=== PATIENT | male | born 1955 | race Caucasian/White ===

== ENCOUNTER → 2024-07-19 14:55 | Outpatient (REF) | payer MEDICARE, OTHER, SELFPAY | LOC: RAD 14:55 | PROVIDERS: ATTENDING PHYSICIAN Surgery Vascular Surgery | DX: N18.6 End stage renal disease (principal); Z99.2 Dependence on renal dialysis; Z01.818 Encounter for other preprocedural examination | CPT/HCPCS: 93985 ==

== ENCOUNTER 2024-08-07 06:10 | Day surgery (SDC) | payer MEDICARE, OTHER, SELFPAY ==
[2024-08-07] VITALS (9 sets, daily range): BP systolic 123–150; BP diastolic 69–95; BMI 19.9
[2024-08-07] MEDS: PERIDEX 0.12% ORAL RINSE 15 ML PO (06:59)
[2024-08-07] MEDS: BACTROBAN NASAL 1 GRAM NASAL (06:59)
[2024-08-07] MEDS: NSS 500 IV (07:00)
[2024-08-07 07:04] LABS: Glucose - Point of Care 114 mg/dl (70-99)
--- NOTE | 2024-08-07 07:07 | W.SUR.PREOP ---
Pre-Operative Surgical Note
-
I have examined this patient prior to the performance of the scheduled procedure.
The patient's condition is unchanged from the time of the current History and
Physical and the patient is able to undergo the scheduled procedure.
[2024-08-07 07:15] LABS: INR 1.06; PT 14.1 Sec (11.4-14.6)
[2024-08-07 07:16] LABS: APTT 33.3 Sec (23.4-35.0)
[2024-08-07 07:17] LABS: Blood Urea Nitrogen 52 mg/dl (9-20); Calcium 7.9 mg/dl (8.4-10.2); Carbon Dioxide 23 mmol/L (22-30); Chloride 103 mmol/L (98-107); Estimated Creatinine Clearance 29 ml/min; Glucose 116 mg/dl (70-99); Potassium 4.9 mmol/L (3.5-5.1); Sodium 138 mmol/L (135-145); eGFR 29.99
[2024-08-07 08:04] LABS: Hematocrit 30.3 % (39.0-52.0); Hemoglobin 9.9 g/dL (13.0-18.0); Mean Corp Hgb Conc. 32.7 g/dL (33.0-37.0); Mean Corpuscular Hgb 30.4 pg (27.0-31.0); Mean Corpuscular Volume 92.9 fL (80.0-94.0); Platelet Count 58 10^3/uL (130-400); Red Blood Cell Count 3.26 10^6/uL (4.70-6.10); Red Cell Dist. Width 16.1 % (11.5-14.5); White Blood Cell Count 2.7 10^3/uL (4.8-10.8)
[2024-08-07 08:05] LABS: Mean Platelet Volume 10.4 fL (7.4-10.4)
--- NOTE | 2024-08-07 09:25 | W.SUR.POST ---
Surgical Immediate Post Op
Note
Pre Op Diagnosis: ESRD
Post Op Diagnosis: same
Procedure Performed: LUE AV graft placement
Primary Surgeon: Rafael
Assist: Delano MERCHANT
Anesthesia: LMA
Estimated Blood Loss: 50 cc
Fluids: See anesthesia flowsheet
Drains/Shunts: None
Specimens/Cultures: None
Doppler/Duplex/Angio (Y/N): Y
Complications: None
Operative Findings: Easily palpable thrill
[2024-08-07 09:37] LABS: Glucose - Point of Care 196 mg/dl (70-99)
[2024-08-07] MEDS: TYLENOL 650 MG PO (10:10)
[2024-08-07] MEDS: ROXICODONE 5 MG PO (10:10)
--- NOTE | 2024-08-07 10:18 | OR.RPT ---
Operative Report
Operative Report
PROCEDURE DATE: 08/07/2024
Preoperative diagnosis: End-stage renal disease on hemodialysis.
Postoperative diagnosis: Same
Procedure: Left upper extremity brachial axillary upper arm AV graft placement with 7 mm x 4 mm [place] Propaten tapered graft.
Surgeon: Rafael
Combine Mechanic: KYLE Wick, required for all aspects of procedure including assistance with traction/countertraction, following of suture line, assistance with closure.
Complications: None
Anesthesia: General
Indications for procedure:
End-stage renal disease on hemodialysis, requiring access. [id number]. Favored left sided access. Recent ultrasound had demonstrated right IJ thrombus as well as superficial thrombus in the right sided system. More reason discussed left
upper extremity access. However his vein mapping study had demonstrated possible cephalic vein thrombus. Therefore discussed performing ultrasound once under anesthesia in the OR to solidify plan in terms of vein/which vein if available or
alternatively graft. Risk/benefits/alternatives were discussed with the patient. He understood all wished to proceed.
Description of procedure:
Patient was identified brought to the operating room placed on the table in supine position. After induction of anesthesia, I performed vein mapping with the ultrasound myself. Cephalic vein in the forearm at the level of the wrist was okay, but
in the mid forearm there was either wall thickening or chronic thrombus. Cephalic vein in the antecubital fossa was slightly small but the main cephalic vein laterally was reasonable, but when I traced it up the upper arm in the mid upper arm it
again had wall thickening or partial thrombus and was very small. Similarly I identified the basilic vein which looked very large in the distal medial upper arm, and then became very sclerotic with possible luminal partial thrombus. There was a
large collateral vein that emanated at that point that drained the basilic vein bed. Therefore at this point I felt that vein fistula was not suitable.
After the adequate administration of anesthesia he was prepped and draped in the standard surgical fashion. A standard preoperative timeout was undertaken and everybody was in agreement the plan. A longitudinal incision was made in the distal
medial upper arm that was carried through skin subcutaneous tissue. I dissected through the crural fascia layer and identified the brachial artery. It was carefully dissected away from surrounding structures, namely the median nerve. Care was
taken to avoid any injury to the surrounding structures. Vesseloops passed around approximately distally. I now made a longitudinal incision in the medial upper arm at the level of the axilla and extending onto the upper arm that was carried
through skin subcutaneous tissue and then through the crural fascial layer. Care was taken to carefully dissect down to the level of the brachial vein. The deep vein was identified and noted to be large. It was circumferentially dissected
proximally distally and a branch also dissected and Vesseloops passed around all these. I felt that this was very reasonable target. Now I created a subcutaneous tunnel between the 2 incision sites with a [employer] tunneler. I then passed a 7 mm x
4 mm [place] Propaten tapered graft through the tunnel. The patient was now given 2008 of intravenous heparin. I now clamped the proximal and distal brachial artery using Yasargil clips. An 11 blade was then used to make an arteriotomy and then
extended using a [place] scissor. The 4 mm end of the graft which was at the arterial side was now beveled and an anastomosis was fashioned in an end-to-side fashion between the graft and the artery. This was done with a running [place] CV 6 suture. I
completed and then tied down my suture line. I then placed a graft clamp on the graft. I then released my Yasargil clips. There is excellent pulsatile flow into the graft. There is a single point bleeder at the tail of the anastomosis. This was
repaired with a single [place] CV 6 jykyfh-ey-[id number] type suture. Hemostasis was now noted.
I now turned my attention to the venous anastomosis in the proximal upper arm incision. Bulldog clamp was placed in the vein more centrally and more distally the vessel loop was double up and then tightened. Venotomy was made with 11 blade and
extended using a [place] scissor. I then beveled the 7 mm end of the graft and sewed an end-to-side anastomosis to the vein using running [place] CV 6 suture. Prior to completing and tying down my suture line I backbled the vein and flushed out the
graft. I then completed and tied down the suture line. I then released flow in the graft as well as the lower sioux venous system. There is an excellent thrill in the graft now. There is some bleeding on the medial aspect of the suture line or I was
able to repair with a single [place] CV 6 zesdiu-zv-ngsip type suture. Hemostasis is now noted at the suture line. There was now noted some bleeding from the tunnel site. I then used a retractor () from the more proximal upper arm incision
and inspected the tunnel site and was able to identify a bleeder in the subcutaneous or superficial muscle tissue. This was then cauterized successfully. Hemostasis was fully noted now. Patient was given some protamine to reverse the heparin.
Full hemostasis was noted. Surgical sites were irrigated fully. Hemostasis was confirmed. We now closed in layers using running deep dermal 3-0 Vicryl layer in both incision sites followed by 4-0 Monocryl subcuticular running suture. Dermabond
was applied to both sites. Patient tolerated procedure well. Had an excellent thrill in the graft as well as palpable radial and ulnar pulse upon completion.
== END 2024-08-07 11:37 | disposition home or self-care (01) ==
LOC: CATH 06:10
PROVIDERS: ATTENDING PHYSICIAN Surgery Vascular Surgery; FAMILY PHYSICIAN Family Medicine; OTHER PHYSICIAN Internal Medicine Cardiovascular Disease
DX: I12.0 Hypertensive chronic kidney disease with stage 5 chronic kidney disease or end stage renal disease (principal); E11.22 Type 2 diabetes mellitus with diabetic chronic kidney disease; N18.6 End stage renal disease; Z99.2 Dependence on renal dialysis; K74.60 Unspecified cirrhosis of liver; Z87.891 Personal history of nicotine dependence; Z79.84 Long term (current) use of oral hypoglycemic drugs; Z79.01 Long term (current) use of anticoagulants
CPT/HCPCS: 36830; 80048; 82962; 85027; 85610; 85730; 86850; 86900; 86901; 93005

== ENCOUNTER → 2024-08-29 11:08 | Outpatient (REF) | payer MEDICARE, OTHER, SELFPAY | LOC: RAD 11:08 | PROVIDERS: ATTENDING PHYSICIAN Physician Assistant; FAMILY PHYSICIAN Family Medicine | DX: I77.0 Arteriovenous fistula, acquired (principal) | CPT/HCPCS: 93990 ==

== ENCOUNTER → 2024-10-10 09:18 | Outpatient (REF) | payer MEDICARE, OTHER, SELFPAY | LOC: RAD 09:18 | PROVIDERS: ATTENDING PHYSICIAN Physician Assistant; FAMILY PHYSICIAN Family Medicine | DX: I73.9 Peripheral vascular disease, unspecified (principal); I87.2 Venous insufficiency (chronic) (peripheral) | CPT/HCPCS: 93971 ==

== ENCOUNTER 2024-12-21 02:13 | Inpatient (IN) | payer MEDICARE, OTHER, SELFPAY ==
[2024-12-20 23:09] VITALS: BP 137/69
[2024-12-20 23:42] LABS: Hematocrit 26.9 % (39.0-52.0); Hemoglobin 9.3 g/dL (13.0-18.0); Mean Corp Hgb Conc. 34.6 g/dL (33.0-37.0); Mean Corpuscular Hgb 30.5 pg (27.0-31.0); Mean Corpuscular Volume 88.2 fL (80.0-94.0); Mean Platelet Volume 10.8 fL (7.4-10.4); Platelet Count 37 10^3/uL (130-400); Red Blood Cell Count 3.05 10^6/uL (4.70-6.10); White Blood Cell Count 1.2 10^3/uL (4.8-10.8)
[2024-12-20 23:44] LABS: Urine Albumin 2+ (Neg - Trace); Urine Bilirubin Negative (Negative); Urine Character Clear (Clear); Urine Color Yellow; Urine Glucose Negative (Negative); Urine Ketone Negative (Negative); Urine Leukocyte Negative (Negative); Urine Nitrite Negative (Negative); Urine Occult Blood 2+ (Negative); Urine Specific Gravity 1.015 (<1.030); Urine Urobilinogen Negative (Neg - 1+)
[2024-12-20] MEDS: TYLENOL 650 MG PO (23:56)
[2024-12-20 23:57] LABS: COVID-19 Antigen Negative (Negative)
[2024-12-21] VITALS (40 sets, daily range): BP systolic 79–139; BP diastolic 50–86; BMI 21.8
[2024-12-21 00:01] LABS: ALT (SGPT) 10 U/L (0-50); AST (SGOT) 16 U/L (17-59); Albumin 3.7 g/dl (3.5-5.0); Alkaline Phosphatase 58 U/L (38-126); Blood Urea Nitrogen 75 mg/dl (9-20); Calcium 8.8 mg/dl (8.4-10.2); Carbon Dioxide 16 mmol/L (22-30); Chloride 107 mmol/L (98-107); Glucose 193 mg/dl (70-99); Potassium 5.2 mmol/L (3.5-5.1); Sodium 135 mmol/L (135-145); Total Bilirubin 0.7 mg/dl (0.2-1.3); Total Protein 6.6 g/dl (6.3-8.2); eGFR 13.05
[2024-12-21 00:04] LABS: Urine Granular Cast 0-2 /LPF (0)
[2024-12-21 00:06] LABS: Urine Bacteria Few (Negative); Urine White Cell 0-2 /HPF (0-5)
--- NOTE | 2024-12-21 00:36 | ED.GENMED ---
History of Present Illness
General
Chief Complaint: Breathing Problem
Source: patient and spouse
Exam Limitations: none
Time Seen by Provider: 12/20/24 23:31
Nursing documentation reviewed up to this point in time: agreed with
History of Present Illness
History of Present Illness:
Patient presents to ED with 3-day history of flulike symptoms, worsened over the past 24 hours with increased work of breathing and hypoxia noted at home, 87% on room air. Patient placed on supplemental oxygen by paramedics and transferred to ED
for an evaluation. Patient denies nausea, vomiting, or diarrhea. Denies chest pain. Denies headache. Denies dizziness. Denies neck pain. Patient has history of recent liver transplant at [facility] last year.
Unfortunately, patient was a candidate for kidney transplant tomorrow, which has been postponed.
Past History
Past History
ED Past Medical History: HTN, NIDDM and Other (Cirrhosis, hep C, ascites requiring paracentesis)
Social History
Tobacco: Former smoker
Alcohol: Former
Personal:
Living: with family
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
Family History
Family History: Negative Hypertension
Review of Systems
Review of Systems
Allergies reviewed?: Yes
All Other Systems: ROS reviewed and negative except as documented in HPI and ROS
Constitutional: Reports fever
EENT: Reports no symptoms
Respiratory: Reports cough and trouble breathing
Cardiac: Reports no symptoms
ABD/GI: Reports no symptoms; Denies vomiting or diarrhea
Musculoskeletal: Reports no symptoms
Skin: Reports no symptoms
Neurological: Reports no symptoms
Phy Exam
Physical Exam
Physical Exam:
Physical Exam
General: mild respiratory distress, acutely ill. febrile. tachypneic
Head: nc/at. eomi
Neck: supple. no meningeal signs.
Heart: s1/s2 regular rate and rhythm.
Lungs: mild respiratory distress. rhonchi bilaterally
Abdomen: normal bowel sounds. not tender.
Neuro: alert and oriented x 3. no focal neurological deficits
Skin: no rash
Psychiatric: well kept. interactive and cooperative
Extremities: no edema. no calf tenderness.
Scores
Heart Failure Risk
Heart Failure Risk Score: Not Applicable
Sepsis
Sepsis Screening
Sepsis Assessment: Sepsis
Sepsis Screen
Sepsis Screen: Sepsis
Date: 12/22/24
Time: 09:14
Course
Orders/Labs/Results
Orders:
Orders
12/20/24 23:27
COVID-19 Antigen Urgent
Source: Nasal Swab
Complete Blood Count/With Diff Urgent
Comprehensive Metabolic Panel Urgent
Manual Differential Urgent
Comment: ADD ON
Urinalysis Urgent
Date Specimen was Collected: 12/20/24
Time Specimen was Collected: 23:25
Urine Microscopic Urgent
Date Specimen was Collected: 12/20/24
Time Specimen was Collected: 23:25
Influenza A+B Rapid Molecular Urgent
KATHRIN Source: Nasal Swab
Specimen Description:
12/20/24 23:40
Acetaminophen [Tylenol] 650 mg PO NOW STA
12/21/24 00:00
CR Chest - 2 Views Urgent
Reason For Exam: SOB, cough
12/21/24 00:29
Influenza A+B Rapid Molecular Urgent
KATHRIN Source: Nasal Swab
Specimen Description:
Date Specimen was Collected: 12/21/24
Time Specimen was Collected: 00:26
12/21/24 00:38
Piperacillin/Tazo 3.375 Gram [Zosyn] 3.375 gram in 50 ml IV NOW
12/21/24 00:48
Lactic Acid Q4H
Comment: CANCEL 2nd LACTIC ACID IF 1st LACTIC ACID IS LESS THAN 2
Blood Culture Q30M
KATHRIN Source: Blood/Venous
Specimen Description:
Blood Culture Q30M
KATHRIN Source: Blood/Venous
Specimen Description:
12/21/24 01:32
Vancomycin [Vancocin] 1,500 mg 0.9% Sodium Chloride 500 ml [Nss] 500 ml IV NOW
12/21/24 01:35
Admit/Transfer Patient As Directed
Co-Sign Provider:
Level of Care: Inpatient admission
Assign to:: IMU- Intermediate Care
Physician / Group: Gabriella/Hospitalist
Diagnosis: Acute hypoxic respiratory failure, multifocal community-acquired pneumonia
Reason for Hospitalization: Acute hypoxic respiratory failure, multifocal community-acquired pneumonia
Expected length of stay greater than two midnights?: Yes
ELOS- Estimated Length of Stay in days: 4
I certify the patient meets the requirements for IP care: Yes
12/21/24 01:36
PRN Pain Medication Management As Directed
May give lesser potent ordered pain med per pt: Yes
preference::
Protocol:: Medication orders for pain may be administered in a
manner that supports deferring to patient preference
when the pt is:
- Requesting an ordered lesser potent pain medication.
Least to most potent pain medications are defined
as: acetaminophen < NSAID < tramadol < opioids
(morphine, oxycodone, hydromorphone).
- Requesting a lesser dose of the same medication IF
ORDERED.
- Requesting a less intrusive route of administration
if both routes are prescribed by the provider (PO <
IV).
12/21/24 01:46
Code Status As Directed
Resuscitation Status: Full Code
12/21/24 02:00
Flush (0.9% Sodium Chloride) [Flush (Nss)] See Dose Instructions IV PER PROTOCOL
12/21/24 03:22
VANCOMYCIN Pharmacy to Dose [VANCOCIN Pharmacy to Dose] 1 each Pharmacy To Prepare [Call Pharmacy To Prepare] 0 ml IV PER PROTOCOL
12/21/24 03:22
NEPHROLOGY CONSULT Routine
Consulting Provider: Eladio Pratt V.
Was physician already notified: Yes
Reason for consult: ESRD on HD, on transplant list, Hep B
Legionella Urinary Antigen Urgent
KATHRIN Source: Urine
Specimen Description:
Respiratory Culture/Gram Stain Urgent
KATHRIN Source: Sputum
Specimen Description:
Strep pneumoniae Antigen Urgent
KATHRIN Source: Urine
Specimen Description:
Activity As Directed
Activity Level: Out of Bed-Early Mobility
Intake/ Output As Directed
Frequency: Per unit guidelines
Pneumatic Compression Sleeves As Directed
Type: Knee high
Vital Signs As Directed
Frequency: Per unit guidelines
Weight As Directed
Frequency: Once
Comment: on admission
O2 Therapy [RESP] Routine
Nasal Cannula Liter Flow: 2 LPM
Titrate/Wean O2 to maintain O2 sat greater than (%): 94
Special Instructions: Wean as tolerated
Pulse Ox/spot Check [RESP] Routine
Quantity: 1
Special Instructions: notify provider if SPO2 < 91%
DX Deep Vein Thrombosis Video Routine
12/21/24 05:41
Complete Blood Count/With Diff IN AM
Comprehensive Metabolic Panel IN AM
Prothrombin Time IN AM
12/21/24 Breakfast
Regular
At Your Request: Full Participation
Fluid Restriction: 1500 mL/day (50 oz)
12/21/24 08:00
Acetaminophen [Tylenol] 650 mg PO TID
Calcium 200mg(Ca. Carb. 500mg) [Tums Chewable Tablet] 200 mg PO DAILY
Cholecalciferol (Vitamin D3) [VITAMIN D3 (cholecalciferol)] 25 mcg PO DAILY
Piperacillin/Tazo 2.25 Gram [Zosyn] 2.25 grams in 50 ml IV Q8H
Tacrolimus [Prograf] 1 mg PO Q12
Tacrolimus [Prograf] 5 mg PO Q12
12/21/24 18:00
Repaglinide [Prandin] 1 mg PO QPM
12/23/24 08:00
entecavir [Baraclude] See Dose Instructions PO MO
Abnormal Lab Results
12/20/24 12/21/24
23:27 00:48
WBC 1.2 L* 10^3/uL
(4.8-10.8)
RBC 3.05 L 10^6/uL
(4.70-6.10)
Hgb 9.3 L g/dL
(13.0-18.0)
Hct 26.9 L %
(39.0-52.0)
RDW 15.0 H %
(11.5-14.5)
Plt Count 37 L 10^3/uL
(130-400)
MPV 10.8 H fL
(7.4-10.4)
Abs Neuts (Manual) 0.8 L* 10^3/uL
(1.4-6.5)
Lymphocytes (Manual) 15 L %
(20-51)
Potassium 5.2 H mmol/L
(3.5-5.1)
Carbon Dioxide 16 L mmol/L
(22-30)
BUN 75 H mg/dl
(9-20)
Creatinine 4.6 H* mg/dL
(0.7-1.3)
Glucose 193 H mg/dl
(70-99)
Lactic Acid 0.5 L mmol/L
(0.7-2.0)
AST 16 L U/L
(17-59)
Urine Occult Blood 2+ A
(Negative)
Urine RBC 3-6 A /HPF
(0-2)
Urine Bacteria Few A
(Negative)
Urine Albumin 2+ A
(Neg - Trace)
12/20/24 23:27
12/20/24 23:27
Vital Signs
Initial and Last Documented VS:
Initial Vital Signs
Temp Pulse Resp BP Pulse Ox
100.4 F H 96 22 137/69 93
12/20/24 23:09 12/20/24 23:09 12/20/24 23:09 12/20/24 23:09 12/20/24 23:09
Last Documented Vital Signs
Temp Pulse Resp BP Pulse Ox
98.3 F 69 20 133/61 97
12/22/24 06:43 12/22/24 05:30 12/22/24 05:30 12/22/24 05:30 12/22/24 05:30
MDM/Problems Addressed
MDM/Problems Addressed:
History, exam, and chest x-ray consistent with hypoxia secondary to bilateral pneumonia. In light of patient's immunocompromise state, patient will be admitted for broad-spectrum antibiotics and continual supplemental oxygen
*Pulse Oximetry
Patient hypoxic: yes (87%)
*Critical Care Note
Total Time (30-74mins, 75-104mins- exclusive of procedures): Not Applicable
ED Attending Note
-
Portions of this chart may have been created with voice recognition software.� Occasional wrong word or��sound alike� substitutions may have occurred due to the inherent limitations of voice recognition software.
Discharge Plan
Departure
Patient Disposition: Admit
Date of Disposition: 12/21/24
Time of Disposition: 00:43
Admit to: IMU
Presentation/result/management discussed w/ accepting MD/DO: Hospitalist
Discharge Problem:
Hypoxia, Pneumonia
Interventions
Interventions:
*Risk Screen - Suicide Last Done: 12/21/24 00:05
*General Assessment Last Done: 12/21/24 00:05
*Neglect/Abuse Screening Last Done: 12/21/24 00:05
*ED- Fall Risk Assessment Last Done: 12/21/24 00:05
*ED COVID-19 Vaccine History Last Done: 12/21/24 00:42
*Nursing Disposition Last Done: 12/21/24 03:26
ED- Cardiac Assessment Last Done: 12/21/24 00:42
ED- Pulmonary Assessment Last Done: 12/21/24 00:42
Discharge Date and Time
Discharge Date/Time: 12/21/24 03:26
--- NOTE | 2024-12-21 00:47 | HPS.HSE ---
Family Physician
-
Family Physician: Renaldo Langford
Chief Complaint
-
Flu-like symptoms, shortness of breath, and fever
History of Present Illness
The patient is a 69-year-old gentleman with past medical history significant for liver transplantation 1 year prior, at [facility], recurrent pancytopenia, hypertension, gtm-[id number] diabetes mellitus, cirrhosis,
hepatitis C, ascites requiring paracentesis who presents to the emergency department via EMS secondary to 5-day history of flulike symptoms that have acutely worsened over the past 24 hours prior to arrival. The patient had nasal congestion and
upper respiratory symptoms that started 5 days ago along with a upper lip cold sore. He then noted that this morning he started to become acutely short of breath and was having a cough productive of sputum over the past 24 hours. His oxygen
saturation was 87% on room air, per EMS on their arrival, and he was placed on oxygen per nasal cannula. Of note the patient was a candidate for kidney transplant for tomorrow which has been postponed.
Labs are remarkable for WBC 1.2, hemoglobin 9.3, platelets 37, potassium 5.2, CO2 16, BUN 75, creatinine 4.6, creatinine was 2.12 July 2024, urinalysis shows 2+ blood 3-6 RBCs few bacteria and 2+ albumin, SARS Cov 2 antigen is negative, influenza
A and B negative.
Chest x-ray report is pending, suspect bilateral lower lobe consolidation
ED treatment includes IV vancomycin, IV Zosyn, Tylenol
Medical History
Past Medical History
Past Medical History: Reports GERD, HTN, NIDDM, Renal Failure (End-stage renal disease on hemodialysis since October 2023) and Other (Cirrhosis, hepatitis C, ascites, status post liver transplantation November 2023 at [facility])
Past Surgical History: Reports Other (Liver transplantation at [facility] approximately 1 year ago, AV graft left upper extremity August 07, [address] Hall)
Social History
Tobacco: Former Smoker
Alcohol: Former
Personal:
Living: With Family
Family History
Family History: Not pertinent
Allergies / Home Medications
Allergies reflects when Allergies were last updated in [facility].
Home Medications with original date entered in [facility]
Allergy/Medication List:
Allergies
Allergy/AdvReac Type Severity Reaction Status Date / Time
No Known Allergies Allergy Verified 12/20/24 23:24
Home Medications
acetaminophen 650 mg tablet 650 mg PO TID 08/07/24
calcium carbonate (Tums) 200 mg PO DAILY 08/07/24
cholecalciferol (vitamin D3) 25 mcg (1,000 unit) capsule (Vitamin D3) 25 mcg PO DAILY 08/07/24
entecavir 0.5 mg tablet (Baraclude) 0.5 mg PO MO Hepatitis B 08/07/24
furosemide 80 mg tablet 80 mg PO .SUNMONWEDTHFRI 08/07/24
repaglinide 1 mg tablet 1 mg PO QPM 08/07/24
tacrolimus 1 mg capsule, immediate-release 1 mg PO Q12H 08/07/24
tacrolimus 5 mg capsule, immediate-release 5 mg PO Q12H 08/07/24
aspirin 325 mg tablet 325 mg PO DAILY 12/21/24
Review of Systems
-
A 12 point ROS was completed and negative except as noted: Yes
Physical Exam
Vital Signs
Vital Signs
Temp Pulse Resp BP Pulse Ox
100.4 F H 96 22 137/69 93
12/20/24 23:09 12/20/24 23:09 12/20/24 23:09 12/20/24 23:09 12/20/24 23:09
Physical Exam
General: Well Developed and Appears Chronically Ill (cachexia)
HEENT: NormoCephalic, Anicteric and Moist mucous membranes
Respiratory: Rhonchi (bilateral)
Cardiac: S1/S2 and Regular Rhythm
GI: Soft, Non Tender and Non Distended
Musculoskeletal: No Clubbing, No Cyanosis, Edema, Left Lower Extremity and Edema, Right Lower Extremity
Skin: Warm and Dry
Neuro: AO x 3 and No Motor Deficits
Psych: Calm
Laboratory Results
-
12/20/24 23:
12/20/24:
Laboratory Results
Total Bilirubin 0.7 mg/dl (0.2-1.3) 12/20/24:
AST 16 U/L (17-59) L 12/20/24:
ALT 10 U/L (0-50) 12/20/24:
Alkaline Phosphatase 58 U/L (38-126) 12/20/24:
Impression/Plan
-
IMPRESSION:
The patient is a 69-year-old gentleman with past medical history significant for liver transplantation November 2023, at [facility], recurrent pancytopenia, hypertension, omr-ywjqpxa-ombytezfz diabetes mellitus, cirrhosis,
hepatitis C, ascites requiring paracentesis who presents to the emergency department via EMS secondary to 5-day history of flulike symptoms that have acutely worsened over the past 24 hours prior to arrival. The patient had nasal congestion and
upper respiratory symptoms that started 5 days ago along with a upper lip cold sore. He then noted that this morning he started to become acutely short of breath and was having a cough productive of sputum over the past 24 hours. His oxygen
saturation was 87% on room air, per EMS on their arrival, and he was placed on oxygen per nasal cannula. Of note the patient was a candidate for kidney transplant for tomorrow which has been postponed.
Labs are remarkable for WBC 1.2, hemoglobin 9.3, platelets 37, potassium 5.2, CO2 16, BUN 75, creatinine 4.6, creatinine was 2.12 July 2024, urinalysis shows 2+ blood 3-6 RBCs few bacteria and 2+ albumin, SARS Cov 2 antigen is negative, influenza
A and B negative.
Chest x-ray report is pending, suspect bilateral lower lobe consolidation
ED treatment includes IV vancomycin, IV Zosyn, Tylenol
# Acute hypoxic respiratory failure secondary to likely bacterial community-acquired pneumonia in the setting of immunosuppression, fever
- Admit the patient to the IMU, telemetry monitoring
- Continue broad-spectrum IV antibioticsWith IV vancomycin and IV Zosyn
- Sputum cultures, blood cultures
- Strep and Legionella urinary antigen
- Continue oxygen per nasal cannula at 2 L and wean per protocol
- Serial lactic acid level
# End-stage renal disease on hemodialysis on Tuesdays and Saturdays, a/w hyperkalemia at 5.2 without EKG changes, metabolic acidosis
-The patient is on the transplant list at [facility], and was scheduled for kidney transplantation tomorrow, and this has been postponed due to current active infection.
-He is status post AV graft left arm in July with Dr. Hall
- Primary team to notify liver transplant specialists at the number [phone], Dr. Martinez is the transplant specialist, Beto Whitfield is the coordinator
- Nephrology consultation placed for hemodialysis tomorrow
- Repeat laboratory in the morning
- Renally adjust medications
- Monitor intake and output and daily weights
- Patient takes Lokelma daily, will continue and monitor laboratory
# Liver transplantation November 2023 [facility]
- Continue the patient on his immunosuppressive medication, tacrolimus, he had his home dose before coming to the ED tonight
# Pancytopenia
- Patient has worsening of WBC with leukopenia, anemia, thrombocytopenia which has been worsened since his most recent laboratory values, likely multifactorial in the setting of acute infection
- Continue to monitor labs daily
- No active bleeding, monitor for bleeding
- Continue broad-spectrum antibiotics
# Hepatitis B acquired within the past year
- Patient is noted that he gets dialyzed in [place] [facility] in [facility] with Dr. Shaffer
- Continue antiviral therapy
# Hypertension, blood pressure is stable at this point
DVT prophylaxis-PCD's given thrombocytopenia
Full code
[2024-12-21] MEDS: ZOSYN 50 IV ×4 (00:54→23:02)
[2024-12-21 01:13] LABS: Segmented Neutrophils 72 % (42-75)
[2024-12-21 01:14] LABS: Anisocytosis 2+; Band Neutrophils 0 % (0-3); Lymphocytes 15 % (20-51); Monocytes 5 % (2-9); Normal RBC Morphology No; Ovalocytes 1+; Platelets Checked Yes; Total Cells Counted 100
[2024-12-21 01:15] LABS: Absolute Neutrophils -Man Diff 0.8 10^3/uL (1.4-6.5)
[2024-12-21 01:37] LABS: Lactic Acid 0.5 mmol/L (0.7-2.0)
[2024-12-21] MEDS: VANCOCIN 530 MG IV (01:42)
[2024-12-21 05:58] LABS: INR 1.33; PT 16.7 Sec (11.4-14.6)
--- NOTE | 2024-12-21 06:04 | PTCARENOTE ---
Admitted pt overnight. aaaox3, pleasant. C/o 02/16 chronic back pain. No SOB or HEAD. Remains on 2LNC. NSR. vitals stable. LAVF, due for HD today. IVABX. No other issues. will monitor.
[2024-12-21 06:06] LABS: Hematocrit 25.3 % (39.0-52.0); Hemoglobin 8.7 g/dL (13.0-18.0); Mean Corp Hgb Conc. 34.4 g/dL (33.0-37.0); Mean Corpuscular Hgb 30.9 pg (27.0-31.0); Mean Corpuscular Volume 89.7 fL (80.0-94.0); Mean Platelet Volume 11.6 fL (7.4-10.4); Platelet Count 33 10^3/uL (130-400); Red Blood Cell Count 2.82 10^6/uL (4.70-6.10); Red Cell Dist. Width 14.9 % (11.5-14.5); White Blood Cell Count 1.8 10^3/uL (4.8-10.8)
[2024-12-21 06:18] LABS: ALT (SGPT) < 10 U/L (0-50); AST (SGOT) 15 U/L (17-59); Albumin 3.2 g/dl (3.5-5.0); Alkaline Phosphatase 44 U/L (38-126); Blood Urea Nitrogen 75 mg/dl (9-20); Calcium 8.5 mg/dl (8.4-10.2); Carbon Dioxide 20 mmol/L (22-30); Chloride 107 mmol/L (98-107); Estimated Creatinine Clearance 16 ml/min; Glucose 190 mg/dl (70-99); Potassium 5.2 mmol/L (3.5-5.1); Sodium 137 mmol/L (135-145); Total Bilirubin 0.6 mg/dl (0.2-1.3); eGFR 12.72
--- NOTE | 2024-12-21 07:38 | PTCARENOTE ---
ON walking rounds pt AAAOx3, awaiting nephrology as today is usual HD day. Pt did walk to BR with tech
--- NOTE | 2024-12-21 07:41 | W.PN.HOSP.TC ---
Today's Communication/Plan
-
vanc/zosyn/azithro - stop vanc if MRSA swab negative
Renal consult for HD
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
monitor PLT
Assessment / Plan
Assessment / Plan
The patient is a 69-year-old gentleman with past medical history significant for liver transplantation 1 year prior, at [facility], recurrent pancytopenia, hypertension, jhe-yatnmep-nwsepmxlc diabetes mellitus, cirrhosis,
hepatitis C, ascites requiring paracentesis who presents to the emergency department via EMS secondary to 5-day history of flulike symptoms that have acutely worsened over the past 24 hours prior to arrival.
# Acute hypoxic respiratory failure secondary to likely bacterial community-acquired pneumonia in the setting of immunosuppression, fever
- Admit the patient to the IMU, telemetry monitoring
- covid and flu negative
- Continue broad-spectrum IV antibiotics With IV vancomycin and IV Zosyn; add Azithromycin for atypical coverage; stop Vanc if MRSA screen negative
- Sputum cultures, blood cultures
- Strep and Legionella urinary antigen
- Continue oxygen per nasal cannula at 2 L and wean per protocol
- Serial lactic acid level
# End-stage renal disease on hemodialysis on Tuesdays and Saturdays, a/w hyperkalemia at 5.2 without EKG changes, metabolic acidosis
-The patient is on the transplant list at [facility], and was scheduled for kidney transplantation tomorrow, and this has been postponed due to current active infection.
-He is status post AV graft left arm in July with Dr. Hall
- I will notify liver transplant specialists at the number [phone], Dr. Martinez is the transplant specialist, Beto Whitfield is the coordinator
- Nephrology consultation placed for hemodialysis
- Renally adjust medications
- Monitor intake and output and daily weights
- Patient takes Lokelma daily, will continue and monitor laboratory
# Liver transplantation November 2023 [facility]
- Continue the patient on his immunosuppressive medication, tacrolimus
# Pancytopenia
- Patient has worsening of WBC with leukopenia, anemia, thrombocytopenia which has been worsened since his most recent laboratory values, likely multifactorial in the setting of acute infection
- Continue to monitor labs daily
- No active bleeding, monitor for bleeding
- Continue broad-spectrum antibiotics
# Hepatitis B acquired within the past year
- Patient is noted that he gets dialyzed in [place] dialysis in [facility] with Dr. Shaffer
- Continue antiviral therapy
# Hypertension, blood pressure is stable at this point
DVT prophylaxis-PCD's given thrombocytopenia
Full code
51 minutes spent on patient care
Anticipated Discharge: > 48 hours
Subjective/Interval History
-
Date of Service: December 21, 2024
feeling better today
sitting up in chair, on 2L
Objective Data
-
Labs:
Laboratory Results
12/20/24 12/21/24
23:27 05:41
WBC 1.2 L* 1.8 L*
Hgb 9.3 L 8.7 L
Hct 26.9 L 25.3 L
Plt Count 37 L 33 L
PT 16.7 H
INR 1.33
Sodium 135 137
Potassium 5.2 H 5.2 H
Chloride 107 107
Carbon Dioxide 16 L 20 L
BUN 75 H 75 H
Creatinine 4.6 H* 4.7 H*
Glucose 193 H 190 H
Calcium 8.8 8.5
Total Bilirubin 0.7 0.6
AST 16 L 15 L
ALT 10 < 10
Alkaline Phosphatase 58 44
Vital Signs:
Vital Signs
Temp Pulse Resp BP Pulse Ox
99.0 F 76 20 103/60 98
12/21/24 03:32 12/21/24 04:00 12/21/24 04:00 12/21/24 04:00 12/21/24 04:00
Review of Systems
-
History Source: Patient
All other systems: Reviewed and negative
Physical Exam
-
General: No Apparent Distress
HEENT: PERRLA
Respiratory: Clear to Auscultation; Negative Wheezes
Cardiac: Regular Rhythm and S1/S2
GI: Soft and Nontender
Musculoskeletal: No Edema
Skin: Warm and Dry; Negative Rash
Neuro: AO x 3
Psych: Calm
Data Reviewed
-
Diagnostic Radiology: Report Reviewed by me
Labs: Labs Reviewed by me
[2024-12-21] MEDS: PROGRAF 5 MG PO ×2 (08:54→20:03)
[2024-12-21] MEDS: ZITHROMAX 500 MG PO (08:55)
[2024-12-21] MEDS: TUMS CHEWABLE TABLET 200 MG PO (08:55)
[2024-12-21] MEDS: TYLENOL 650 MG PO ×3 (08:55→22:26)
[2024-12-21] MEDS: VITAMIN D3 (cholecalciferol) 25 MCG PO (08:56)
[2024-12-21] MEDS: PROGRAF 1 MG PO ×2 (08:57→20:03)
[2024-12-21] MEDS: MUCINEX 600 MG PO ×2 (08:58→20:03)
--- NOTE | 2024-12-21 09:10 | W.CON.NEPH ---
Consultation
-
Date/Time Consultation Requested: 12/21/2024 2:00 AM
Date/Time Consultation Performed: 12/21/2024 900 AM
Requesting Provider: Dr. Quiroz
Performing Provider: Dr. Pratt
Reason for Consultation: ESRD
Medical History
-
Chief Complaint: ESRD
History of Present Illness:
The patient is a 69-year-old gentleman with past medical history significant for liver transplantation 1 year prior, at [facility] (maintained on tacrolimus),ESRD (on dialysis since October 2023 on Monday
[facility] dialysis with Dr. hSaffer) recurrent pancytopenia, hypertension, haf-nlszmky-jjcyexxtm diabetes mellitus, cirrhosis, hepatitis C, ascites requiring paracentesis who presents to the emergency department via EMS secondary to
5-day history of flulike symptoms that have acutely worsened over the past 24 hours prior to arrival. The patient had nasal congestion and upper respiratory symptoms that started 5 days ago along with a upper lip cold sore. He then noted that this
morning he started to become acutely short of breath and was having a cough productive of sputum over the past 24 hours. His oxygen saturation was 87% on room air, per EMS on their arrival, and he was placed on oxygen per nasal cannula. Of note the
patient was a candidate for kidney transplant for 12/21/24 which has been postponed.
Labs are remarkable for WBC 1.2, hemoglobin 9.3, platelets 37, potassium 5.2, CO2 16, BUN 75, creatinine 4.6, creatinine was 2.12 July 2024, urinalysis shows 2+ blood 3-6 RBCs few bacteria and 2+ albumin, SARS Cov 2 antigen is negative, influenza
A and B negative.
Chest x-ray report is pending, suspect bilateral lower lobe consolidation
Past Medical History
Reports GERD, HTN, NIDDM, Renal Failure (End-stage renal disease on hemodialysis since October 2023) and Other (Cirrhosis, hepatitis C, ascites, status post liver transplantation November 2023 at [facility])
Past Surgical History: Reports Other (Liver transplantation at [facility] approximately 1 year ago, AV graft left upper extremity August 07, [address] Hall)
Social History
Tobacco: Former Smoker
Alcohol: Former
Family History
no ckd
Allergies / Home Medications
Allergy/AdvReac Type Severity Reaction Status Date / Time
No Known Allergies Allergy Verified 12/20/24 23:24
�Medication �Instructions �Recorded �Confirmed �Type
acetaminophen 650 mg tablet 650 mg PO TID 08/07/24 12/21/24 History
calcium carbonate (Tums) 200 mg PO DAILY 08/07/24 12/21/24 History
cholecalciferol (vitamin D3) 25 25 mcg PO DAILY 08/07/24 12/21/24 History
mcg (1,000 unit) capsule (Vitamin
D3)
entecavir 0.5 mg tablet (Baraclude) 0.5 mg PO MO Hepatitis B 08/07/24 12/21/24 History
furosemide 80 mg tablet 80 mg PO .SUNMONWEDTHFRI 08/07/24 12/21/24 History
repaglinide 1 mg tablet 1 mg PO QPM 08/07/24 12/21/24 History
tacrolimus 1 mg capsule, 1 mg PO Q12H 08/07/24 12/21/24 History
immediate-release
tacrolimus 5 mg capsule, 5 mg PO Q12H 08/07/24 12/21/24 History
immediate-release
aspirin 325 mg tablet 325 mg PO DAILY 12/21/24 12/21/24 History
Review of Systems
-
History Source: Patient
All other systems: Negative unless noted
Constitutional: Fever and Fatigue
EENT: Runny Nose
Respiratory: Cough and Trouble Breathing
Skin: Other (Cold sore on lip)
Physical Exam
Vital Signs
Vital Signs
Temp Pulse Resp BP Pulse Ox
98.3 F 76 20 103/60 98
12/21/24 07:30 12/21/24 04:00 12/21/24 04:00 12/21/24 04:00 12/21/24 04:00
Lab Results
12/21/24 05:41
12/21/24 05:41
WBC 1.8 10^3/uL (4.8-10.8) L* 12/21/24 05:41
RBC 2.82 10^6/uL (4.70-6.10) L 12/21/24 05:41
Hgb 8.7 g/dL (13.0-18.0) L 12/21/24 05:41
Hct 25.3 % (39.0-52.0) L 12/21/24 05:41
Plt Count 33 10^3/uL (130-400) L 12/21/24 05:41
Sodium 137 mmol/L (135-145) 12/21/24 05:41
Potassium 5.2 mmol/L (3.5-5.1) H 12/21/24 05:41
Chloride 107 mmol/L (98-107) 12/21/24 05:41
Carbon Dioxide 20 mmol/L (22-30) L 12/21/24 05:41
BUN 75 mg/dl (9-20) H 12/21/24 05:41
Creatinine 4.7 mg/dL (0.7-1.3) H* 12/21/24 05:41
eGFR 12.72 12/21/24 05:41
Glucose 190 mg/dl (70-99) H 12/21/24 05:41
Calcium 8.5 mg/dl (8.4-10.2) 12/21/24 05:41
Albumin 3.2 g/dl (3.5-5.0) L 12/21/24 05:41
Physical Exam
General: AOx3, Nontoxic , NAD
HEENT: PERRL, EOMI, Anicteric, Conjunctivae Clear, Ear/Nose Intact, Hearing Normal, Oropharynx Clear/Moist, Dentition Intact, Facial Symmetry, Neck Supple, Neck: Trachea Midline, No JVD and No Thyromegaly, no Bruits
Respiratory: Crackles bilaterally to auscultation bilaterally with normal lung excursion
Cardiac: S1/S2 and Regular Rate/Rhythm
Breast: Deferred by me
Abdomen: Soft, Nontender, Nondistended, Normal Bowel Sounds and No Hepatosplenomegaly
Rectal: Deferred by Provider
Genito-urinary: No Costovertebral Tenderness
Extremities: No Clubbing, No Cyanosis and No Edema
Skin: No Rash or open lesions
Neuro: Nonfocal/Grossly Intact, CN II-XII (Intact) and Strength (Musculoskeletal exam 5 out of 5 both upper and lower extremities)
Hematologic/Lymphatic: No Cervical Lymphadenopathy, No Submandibular Lymphadenopathy and No Supraclavicular Lymphadenopathy
Psych: Mood/afflect pleasant, Insight/judgement good and Appropriate
Vascular: plus 2 pedal and radial pulses
Vascular Access: AVF (LUE AVF: good thrill bruit)
Data Reviewed
-
Radiology: Image Personally Visualized and interpreted (Chest x-ray: Bilateral lower lobe infiltrates)
Medical Tests (Nuc Med, Echo etc): Other (EKG report reviewed normal sinus rhythm with nonspecific T wave abnormality at 94 beats per minute)
Labs: Labs Reviewed by me (BMP CBC)
Assessment/Plan
-
Impression:
PNA with hypoxic respiratory failure
ESRD
Chronic pancytopenia (chronic immunosuppresion)
History of liver transplant in November 2019
Uwk-osldeap-abvefpipj diabetes
Hepatitis B
HTN
LUE AVF
Plan:
Plan will be for hemodialysis today, orders provides
Appropriate dietary and fluid restrictions ordered for ESRD
Antibiotics for pneumonia to be renally dosed
GENIE support for anemia
--- NOTE | 2024-12-21 09:58 | PTCARENOTE ---
Pt AAOx3, gets to chair by himself. Awaiting HD. Pt has LAV fistula +bruit and thrill . Lungs are coarse with some crackles. Pt on 2 liters of o2 at 94%
--- NOTE | 2024-12-21 10:18 | PHA.VAN.IN ---
Assessment
- Assessment
Renal Function: Patient has ESRD, on chronic Hemodialysis
Hemodialysis Schedule: TThSa
Maximum Temperature: 100.4
Minimum Temperature: 98.3
Concomitant Antimicrobials: Azithromycin; Piperacillin-tazobactam
Plan
- Plan
Initial / Loading Dose: Vanc 1500mg 12/21 at 0142
Maintenance Regimen: Dose by level
Monitoring: R 12/22 AM
Pharmacokinetics Vancomycin I
- -
Patient Age: 69
Patient Sex: Male
Vancomycin Day #: 1
Indication: Pulmonary/Respiratory
Requesting Provider: Manasa Quiroz
Height / Weight:
Height 6 ft 1 in
Actual Weight 74.8 kg
IBW in k.9
Adjusted BW in kg: NA
Pertinent Past Medical History: Post liver transplant 11/2023; ESRD on HD ,, Sa since 10/2023
- Vital Signs / Lab Results
Temp Pulse Resp BP Pulse Ox
98.3 F 74 17 103/67 98
12/21/24 07:30 12/21/24 08:00 12/21/24 08:00 12/21/24 06:00 12/21/24 08:00
Lab Results - Hematology
12/20/24 12/21/24
23:27 05:41
WBC 1.2 L* 1.8 L*
Band Neutrophils 0
Lab Results - Chemistry
12/20/24 12/21/24
23:27 05:41
BUN 75 H 75 H
Creatinine 4.6 H* 4.7 H*
Estimated Creat Clear 16
Albumin 3.7 3.2 L
12/21/24 12/21/24 12/21/24
00:48 03:22 04:45
Lactic Acid 0.5 L Cancelled Cancelled
12/21/24 12/21/24 12/21/24
07:22 11:22 15:22
Lactic Acid Cancelled Cancelled Cancelled
Lab Results - Urine
12/20/24
23:27
Urine Nitrite Negative
Ur Leukocyte Esterase Negative
Urine WBC 0-2
Ur Squamous Epith Cells 3-5
Urine Bacteria Few A
Microbiology Results
12/21/24 00:29 Influenza Types A & B (KURT) - Final
Nasal Swab Negative for Influenza A & B, NAAT
Negative results must be combined with clinical observations
and patient history.
Nucleic Acid Amplification test (NAAT)performed on the
[employer] ID NOW platform.
12/20/24 23:27 Influenza Types A & B (KURT) - Final
Nasal Swab Test repeatedly invalid.
Nucleic Acid Amplification test (NAAT)performed on the
[employer] NOW platform.
--- NOTE | 2024-12-21 12:49 | W.PN.NEPH.HD ---
Assessment
-
Patient seen on dialysis
Systolic blood pressure stable with UF although low side
Dialysis via left upper extremity AV fistula
Progress Note - Hemodialysis
-
Date of Service: December 21, 2024
Duration: 30 minutes and 3 hours
Potassium Bath: 2
Calcium Bath: 2.5
Opti-Dialyzer: 160
Ultrafiltration: Other (1 to 2 kg as hemodynamically Toller)
Blood Flow: 400
Dialysate Flow: 600
Heparin: None
EPO: 10,000
[2024-12-21 12:58] LABS: Absolute Neutrophils -Man Diff 1.2 10^3/uL (1.4-6.5); Anisocytosis Slight; Band Neutrophils 2 % (0-3); Lymphocytes 20 % (20-51); Metamyelocytes 1 % (-); Monocytes 7 % (2-9); Normal RBC Morphology No; Platelets Checked Yes; Segmented Neutrophils 70 % (42-75); Total Cells Counted 100
[2024-12-21] MEDS: RETACRIT 10000 UNITS IV (14:13)
[2024-12-21] MEDS: FLEXBUMIN 25% FOR HEMODIALYSIS 12.5 GRAMS IV ×2 (14:14→15:28)
[2024-12-21] MEDS: PRANDIN 1 MG PO (17:00)
--- NOTE | 2024-12-21 17:04 | W.PN.UPDATE ---
Addendum entered and electronically signed by Henrique Wan DO 12/21/24 17:09:
No history of reduced EF. Will start IV diltiazem drip rather than Lopressor pushes.
Original Note:
Update Note
Progress Note Update
Notified by nursing that patient converted to atrial fibrillation near the end of dialysis with HR in the range of 130 to 140/min. I was immediately available at the bedside. Blood pressure in the range of 90-95 systolic but otherwise stable.
Review of chart shows no previous history of AF, not currently on anticoagulation. Currently with pancytopenia and platelet count 233. Will order IV metoprolol 5 mg x 1 now with additional 5 mg dose in 1 hour if HR sustained >120/min. Will order
250 mL NS bolus to be given if blood pressure drops with metoprolol. Will defer again starting anticoagulation due to thrombocytopenia and significant bleeding risk. Consult cardiology, continue on telemetry and IMU status
--- NOTE | 2024-12-21 17:20 | PTCARENOTE ---
Pt finishing HD HR to 137 monitor stating Afib, EKG confirmed AFIB, DR aWn TT, saw pt cards consulted Karishma gtt ordereed. BP now 86/61
will give fluids as ordered
[2024-12-21] MEDS: NSS 250 IV (17:23)
[2024-12-21] MEDS: CARDIZEM 125 IV (17:25)
[2024-12-22] VITALS (19 sets, daily range): BP systolic 107–173; BP diastolic 51–162; BMI 21.4
[2024-12-22] MEDS: ULTRAM 50 MG PO (04:10)
[2024-12-22 04:16] LABS: % Basophils 0.3 % (0-2); % Eosinophils 1.9 % (0-6); % Immature Granulocytes 7.6 % (0-0.5); % Lymphocytes 22.3 % (20.5-51.1); % Neutrophils 59.9 % (42.2-75.2); Absolute Eosinophils 0.1 10^3/uL (0-0.7); Absolute Immature Granulocytes 0.2 10^3/uL (0-0.05); Absolute Lymphocytes 0.7 10^3/uL (1.2-3.4); Absolute Monocytes 0.3 10^3/uL (0.1-0.6); Absolute Neutrophils 1.9 10^3/uL (1.4-6.5); Hematocrit 30.4 % (39.0-52.0); Hemoglobin 10.2 g/dL (13.0-18.0); Mean Corp Hgb Conc. 33.6 g/dL (33.0-37.0); Mean Corpuscular Hgb 30.4 pg (27.0-31.0); Mean Corpuscular Volume 90.5 fL (80.0-94.0); Mean Platelet Volume 11.9 fL (7.4-10.4); Nucleated Red Blood Cells % 0 % (-); Platelet Count 60 10^3/uL (130-400); Red Blood Cell Count 3.36 10^6/uL (4.70-6.10); Red Cell Dist. Width 15.3 % (11.5-14.5); White Blood Cell Count 3.1 10^3/uL (4.8-10.8)
[2024-12-22 04:32] LABS: Blood Urea Nitrogen 42 mg/dl (9-20); Calcium 8.6 mg/dl (8.4-10.2); Carbon Dioxide 25 mmol/L (22-30); Chloride 102 mmol/L (98-107); Estimated Creatinine Clearance 25 ml/min; Glucose 159 mg/dl (70-99); Magnesium 1.9 mg/dl (1.6-2.3); Potassium 4.3 mmol/L (3.5-5.1); Sodium 138 mmol/L (135-145)
[2024-12-22 04:33] LABS: Vancomycin Random 10.5 ug/ml
--- NOTE | 2024-12-22 05:19 | PTCARENOTE ---
Pt c/o of pain in back. Tylenol given earlier in shift with little to no improvement. Notified [facility]. 1x dose of Tramadol ordered and administered (see MAR). Pt also noted to be back in NSR with PVCs on monitor. Confirmed with EKG. Cardizem to
remain running at this time at 5 mg per [facility].
--- NOTE | 2024-12-22 08:40 | PHA.VAN.FU ---
Vancomycin Assessment / Plan
- Assessment
Hemodialysis Schedule: TThSa
Last Hemodialysis performed: 12/21/2024
WBC's are: Trending Up
In the past 24 hrs, patient has been: Afebrile
Concomitant Antimicrobials: Azithromycin, Piperacillin-tazobactam
- Assessment - Therapeutic Drug Monitoring
Random Level: R = 10.5 ~ 26hrs post Vanc 1500mg
- Dosing Plan
Continue: Dose by level post HD
Dosing by Level: Re-dose today (Vanc 750mg--10mg/kg)
- Monitoring Plan
Random Level: 616 AM
- Follow Up
Pharmacy will continue to follow.
Vancomycin Follow UP
- -
Patient Age: 69
Patient Sex: Male
Vancomycin Day #: 2
Indication: Pulmonary/Respiratory
Requesting Provider: Manasa Quiroz
Height / Weight:
Height 6 ft 1 in
Actual Weight 73.6 kg
IBW in k.9
Adjusted BW in kg: NA
Pertinent Past Medical History: Post liver transplant 11/2023; ESRD on HD , since 10/2023
- Vital Signs / Lab Results
Temp Pulse Resp BP Pulse Ox
98.3 F 69 20 133/61 97
12/22/24 06:43 12/22/24 05:30 12/22/24 05:30 12/22/24 05:30 12/22/24 05:30
Lab Results - Hematology
12/20/24 12/21/24 12/22/24
23:27 05:41 03:42
WBC 1.2 L* 1.8 L* 3.1 L
Band Neutrophils 0 2
Lab Results - Chemistry
12/20/24 12/21/24 12/22/24
23:27 05:41 03:42
BUN 75 H 75 H 42 H
Creatinine 4.6 H* 4.7 H* 3.0 H
Estimated Creat Clear 16 25
Albumin 3.7 3.2 L
12/21/24 12/21/24 12/21/24
00:48 03:22 04:45
Lactic Acid 0.5 L Cancelled Cancelled
12/21/24 12/21/24 12/21/24
07:22 11:22 15:22
Lactic Acid Cancelled Cancelled Cancelled
Microbiology Results
12/21/24 00:48 Blood Culture - Preliminary
Blood/Venous No Growth in 24 hours- Final report to follow
12/21/24 00:48 Blood Culture - Preliminary
Blood/Venous No Growth in 24 hours- Final report to follow
12/21/24 00:29 Influenza Types A & B (KURT) - Final
Nasal Swab Negative for Influenza A & B, NAAT
Negative results must be combined with clinical observations
and patient history.
Nucleic Acid Amplification test (NAAT)performed on the
[employer] ID NOW platform.
12/20/24 23:27 Influenza Types A & B (KURT) - Final
Nasal Swab Test repeatedly invalid.
Nucleic Acid Amplification test (NAAT)performed on the
[employer] NOW platform.
Therapeutic Drug Monitoring
Random Vancomycin 10.5 ug/ml 12/22/24 03:41
--- NOTE | 2024-12-22 08:40 | W.PN.HOSP.TC ---
Addendum entered and electronically signed by Jewels Watt MD 12/22/24 15:33:
I updated clinical transplant coordinator commissioned security officer.
Team to touch base with transplant team tomorrow - [phone]
If platelets improve significantly tomorrow, can consider addition of AC if OK with patient's transplant team
Addendum entered and electronically signed by Jewels Watt MD 12/22/24 09:08:
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
plan briefly discussed with ID. Given patient not presenting like MRSA pneumonia, I will stop IV Vanc and monitor him over next 24 hours. broaden antibiotics if clinical worsening
I will change regimen to IV Unasyn/Doxy - with anticipation of discharge on Augmentin/Doxy in next 1-2 days.
Original Note:
Today's Communication/Plan
-
start Metoprolol, stop Dilt
IV Zosyn/Azithro/Vanc (stop Vanc when MRSA screen returns)
monitor blood counts
Appreciate Renal
Appreciate Cardiology
Assessment / Plan
Assessment / Plan
The patient is a 69-year-old gentleman with past medical history significant for liver transplantation 1 year prior, at [facility], recurrent pancytopenia, hypertension, wej-zlxkpce-hluntpsfk diabetes mellitus, cirrhosis,
hepatitis C, ascites requiring paracentesis who presents to the emergency department via EMS secondary to 5-day history of flulike symptoms that have acutely worsened over the past 24 hours prior to arrival. Admitted for CAP.
CXR 12/21/24
IMPRESSION:
1. Severe bilateral lower lobe airspace opacity. Diagnostic possibilities are (1) SEVERE BILATERAL LOWER LOBE PNEUMONIA or (2) a combination of alveolar pulmonary edema and atelectasis.
2. Small right and minimal left pleural effusions.
3. Mild cardiomegaly.
4. Diffuse bone demineralization.
# Acute hypoxic respiratory failure secondary to likely bacterial community-acquired pneumonia in the setting of immunosuppression, fever
- Admit the patient to the IMU, telemetry monitoring
- covid and flu negative
- Continue broad-spectrum IV antibiotics With IV vancomycin and IV Zosyn; add Azithromycin for atypical coverage; stop Vanc if MRSA screen negative
- can consider transition to Augmentin/Azithro on DC
- Sputum cultures, blood cultures
- patient now on room air
#Afib with RVR
-occurred towards end of HD session on 12/21; patient is now in sinus rhythm in 70's
-He reports afib one year ago after liver transplant and none since. He had a PPM placed. His reports he recently had [facility] monitoring through [facility] pre-op for renal transplant but they did not receive results. Patient is on asa 325 mg PO QD
at home. 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
-CHADS2-Vasc score = 3-4
-with PLT at 60 and upcoming transplant surgery AC needs to be discucssed with his team at [facility]
# End-stage renal disease on hemodialysis on Tuesdays and Saturdays, a/w hyperkalemia at 5.2 without EKG changes, metabolic acidosis
-The patient is on the transplant list at [facility], and was scheduled for kidney transplantation tomorrow, and this has been postponed due to current active infection.
-He is status post AV graft left arm in July with Dr. Hall
- discussed with clinical transplant coordinator on 12/21/24; will call again today. [phone], Dr. Martinez is the transplant specialist, Beto Whitfield is the coordinator
- Nephrology consultation placed for hemodialysis
- Renally adjust medications
- Monitor intake and output and daily weights
- Patient takes Lokelma daily, will continue and monitor laboratory
# Liver transplantation November 2023 [facility]
- Continue the patient on his immunosuppressive medication, tacrolimus
# Pancytopenia
- Patient has worsening of WBC with leukopenia, anemia, thrombocytopenia which has been worsened since his most recent laboratory values, likely multifactorial in the setting of acute infection
-improving today
# Hepatitis B acquired within the past year
- Patient is noted that he gets dialyzed in [place] dialysis in [facility] with Dr. Shaffer
- Continue antiviral therapy
# Hypertension, blood pressure is stable at this point
DVT prophylaxis-SCD given thrombocytopenia
Full code
51 minutes spent on patient care
Anticipated Discharge: 24 - 48 hours
Subjective/Interval History
-
Date of Service: December 22, 2024
patient currently feeling well
he is on room air
Objective Data
-
Labs:
Laboratory Results
12/22/24
03:42
WBC 3.1 L
Hgb 10.2 L
Hct 30.4 L
Plt Count 60 L D
Sodium 138
Potassium 4.3
Chloride 102
Carbon Dioxide 25
BUN 42 H
Creatinine 3.0 H
Glucose 159 H
Calcium 8.6
Vital Signs:
Vital Signs
Temp Pulse Resp BP Pulse Ox
98.3 F 69 20 133/61 97
12/22/24 06:43 12/22/24 05:30 12/22/24 05:30 12/22/24 05:30 12/22/24 05:30
Review of Systems
-
History Source: Patient
All other systems: Reviewed and negative
Physical Exam
-
General: No Apparent Distress and Conversant
HEENT: PERRLA
Respiratory: Negative Wheezes
Cardiac: Regular Rhythm and S1/S2
GI: Soft and Nontender
Musculoskeletal: No Edema
Skin: Warm and Dry; Negative Rash
Neuro: AO x 3
Psych: Calm
Data Reviewed
-
Diagnostic Radiology: Report Reviewed by me
Labs: Labs Reviewed by me
[2024-12-22] MEDS: VITAMIN D3 (cholecalciferol) 25 MCG PO (08:59)
[2024-12-22] MEDS: TUMS CHEWABLE TABLET 200 MG PO (08:59)
[2024-12-22] MEDS: TYLENOL 650 MG PO ×3 (08:59→20:48)
[2024-12-22] MEDS: PROGRAF 1 MG PO ×2 (08:59→20:48)
[2024-12-22] MEDS: MUCINEX 600 MG PO ×2 (08:59→20:47)
[2024-12-22] MEDS: PROGRAF 5 MG PO ×2 (08:59→20:48)
[2024-12-22] MEDS: ZITHROMAX PO (09:00)
[2024-12-22] MEDS: ZOSYN IV (09:09)
[2024-12-22] MEDS: LOPRESSOR 25 MG PO ×2 (09:15→20:50)
[2024-12-22] MEDS: VIBRAMYCIN 100 MG PO ×2 (09:15→20:48)
[2024-12-22] MEDS: UNASYN IV ×2 (11:17→20:49)
--- NOTE | 2024-12-22 12:09 | CON.CAR ---
Consultation
Consultation Request
Date/Time Consultation Requested: 12/21/2024 1709
Date/Time Consultation Performed: 12/22/2024 1000
Requesting Provider: Dr Wan
Performing Provider: Dr Joel
Reason for Consultation: AF
Medical History
-
Chief Complaint: Flu-like symptoms
History of Present Illness:
Patient is a pleasant 69-year-old male with a past medical history significant for liver transplant 1 year ago at [facility], pancytopenia, hypertension, diabetes mellitus type 2, cirrhosis, hepatitis C, end-stage renal
disease on hemodialysis, hepatitis B who presented with flulike symptoms found have acute hypoxic respiratory failure secondary to bacterial community-acquired pneumonia in the setting of immunosuppression. Patient going treatment by primary
service for his pneumonia with improvement during hospitalization. Following hemodialysis, patient experienced AF RVR for which he was placed on diltiazem and provided fluid and electrolyte replacement with spontaneous return to sinus rhythm on
12/22/2024. In discussion with patient, he denied any symptoms associated with this. Patient denies any chest pain, shortness of breath, palpitations, or weakness. Patient reports he overall feels well. Patient follows with multiple physicians at
[facility] including Dr. Perry Montoya for Cardiology/EP. Patient currently resting comfortably without complaint. He reports no prior reported episodes of atrial fibrillation.
Past Medical History
Past Medical History: Other (See HPI)
Past Surgical History: Other (Liver transplantation at [facility] approximately 1 year ago, AV graft left upper extremity August 07, [address] Hall)
Social History
Tobacco: Former Smoker
Alcohol: Former
Drug: None
Personal:
Living: With Family
Family History
Family History: Reviewed & Not Pertinent
Allergies / Home Medications
Allergy/AdvReac Type Severity Reaction Status Date / Time
No Known Allergies Allergy Verified 12/20/24 23:24
�Medication �Instructions �Recorded �Confirmed �Type
acetaminophen 650 mg tablet 650 mg PO TID Pain 08/07/24 12/21/24 History
calcium carbonate (Tums) 200 mg PO DAILY Supplement 08/07/24 12/21/24 History
cholecalciferol (vitamin D3) 25 25 mcg PO DAILY Supplement 08/07/24 12/21/24 History
mcg (1,000 unit) capsule (Vitamin
D3)
entecavir 0.5 mg tablet (Baraclude) 0.5 mg PO MO Hepatitis B 08/07/24 12/21/24 History
furosemide 80 mg tablet 80 mg PO .SUNMONWEDTHFRI Fluid 08/07/24 12/21/24 History
Retention/Swelling
repaglinide 1 mg tablet 1 mg PO QPM Diabetes 08/07/24 12/21/24 History
tacrolimus 1 mg capsule, 1 mg PO Q12H Calcineurin Inhibitor 08/07/24 12/21/24 History
immediate-release
tacrolimus 5 mg capsule, 5 mg PO Q12H Calcineurin Inhibitor 08/07/24 12/21/24 History
immediate-release
aspirin 325 mg tablet 325 mg PO DAILY Blood Clot 12/21/24 12/21/24 History
Prevention/Tx
Review of Systems
-
History Source: Patient
All other systems: Negative unless noted
Constitutional: No Symptoms
EENT: No Symptoms
Respiratory: No Symptoms
Cardiac: No Symptoms
Abdomen/GI: No Symptoms
: No Symptoms
Musculoskeletal: No Symptoms
Skin: No Symptoms
Neurological: No Symptoms
Endocrine: No Symptoms
Hematologic/Lymphatic: No Symptoms
Physical Exam
Vital Signs
Temp Pulse Resp BP Pulse Ox
98.3 F 77 24 139/62 91
12/22/24 06:43 12/22/24 09:00 12/22/24 09:00 12/22/24 09:00 12/22/24 09:00
Lab Results
12/22/24 03:42
12/22/24 03:42
Physical exam:
GENERAL: no acute distress, chronically ill-appearing
EYE: sclera anicteric
NECK: Supple, no JVD, no carotid bruit appreciated
ENT: normal nose, moist mucosal membranes
CARDIAC: Regular rate and rhythm, +S1/S2, no murmur, rubs, or gallops; LUE AVF with thrill and bruit
CHEST/PULMONARY: Normal effort, clear breath sounds
ABDOMEN: Soft, without focal tenderness or distention
NEUROLOGICAL: Alert and oriented x3
SKIN: Warm and dry, no rash
PSYCH: Normal and appropriate interaction.
Telemetry shows AF RVR with spontaneous return to sinus rhythm roughly 3 AM with maintenance of sinus rhythm since then.
Impression / Plan
-
Cardiology/EP: Dr.Robert Montoya
Impression:
AF RVR, new diagnosis
� [id number]: 3 (age, hypertension, diabetes). Not on anticoagulation at this time
� Placed on diltiazem drip for rate control with spontaneous return to sinus rhythm
� No prior reported documentation of AF
Acute respiratory failure in the setting of community-acquired pneumonia, undergoing treatment
End-stage renal disease on hemodialysis
Hypertension
Diabetes mellitus type 2
Cirrhosis
Hepatitis C
Prior liver transplant
Recommendations:
� Agree with primary service discontinuation of diltiazem and initiation of oral beta-brianne therapy
� Continue to treat underlying causes with hypovolemia, electrolyte shifts, and ongoing infection
� Would recommend follow-up with patient's primary cash management officer for further discussion regarding management of his atrial fibrillation going forward. Additionally, it may require a multidisciplinary approach regarding anticoagulation status in the
setting of significant thrombocytopenia and chronic medical conditions. Based on patient's [id number] scoring, he would benefit from stroke risk reduction with oral anticoagulation. Hospital service to reach out to transplant/surgical teams to
see if patient would be an appropriate candidate as well.
� 2D echocardiogram assess cardiac size, shape, function
� Monitor on telemetry
� Antibiotic per primary service, dialysis per nephrology
Discussed with nursing, hospitalist
Data Reviewed
-
EKG: Tracing Personally Visualized and interpreted
Radiology: Report Reviewed by me
Medical Tests (Nuc Med, Echo etc): Report Reviewed by me
Labs: Labs Reviewed by me
Old Records: Reviewed
--- NOTE | 2024-12-22 12:52 | W.PN.NEPH.PH ---
Today's Communication / Plan
-
next HD Monday
Assessment/Plan
-
Impression:
PNA with hypoxic respiratory failure
ESRD
Chronic pancytopenia (chronic immunosuppresion)
History of liver transplant in November 2019
Fcd-hjtcfbl-gxznlzaiz diabetes
Hepatitis B
HTN
LUE AVF
Plan:
next HD on Monday
AFIB new onset after HD yesterday, cardiology consult reviewed
will limit uf on next HD
Appropriate dietary and fluid restrictions ordered for ESRD
Antibiotics for pneumonia to be renally dosed
GENIE support for anemia
-
-
Date of Service: December 22, 2024
CC / HPI / ROS
-
Chief Complaint:
ESRD TTS
History of Present Illness:
ESRD TTS
afib after HD yesterday
currently hemodyanmically stable
Review of Systems:
no cp or fevers
Labs
-
Labs:
WBC 3.1 10^3/uL (4.8-10.8) L 12/22/24 03:42
RBC 3.36 10^6/uL (4.70-6.10) L 12/22/24 03:42
Hgb 10.2 g/dL (13.0-18.0) L 12/22/24 03:42
Hct 30.4 % (39.0-52.0) L 12/22/24 03:42
Plt Count 60 10^3/uL (130-400) L D 12/22/24 03:42
Sodium 138 mmol/L (135-145) 12/22/24 03:42
Potassium 4.3 mmol/L (3.5-5.1) 12/22/24 03:42
Chloride 102 mmol/L (98-107) 12/22/24 03:42
Carbon Dioxide 25 mmol/L (22-30) 12/22/24 03:42
BUN 42 mg/dl (9-20) H 12/22/24 03:42
Creatinine 3.0 mg/dL (0.7-1.3) H 12/22/24 03:42
eGFR 21.80 12/22/24 03:42
Glucose 159 mg/dl (70-99) H 12/22/24 03:42
Calcium 8.6 mg/dl (8.4-10.2) 12/22/24 03:42
Albumin 3.2 g/dl (3.5-5.0) L 12/21/24 05:41
Physical Exam
-
Vital Signs:
Vital Signs
Temp Pulse Resp BP Pulse Ox
98.3 F 77 24 139/62 91
12/22/24 06:43 12/22/24 09:00 12/22/24 09:00 12/22/24 09:00 12/22/24 09:00
Cardiovascular:: Regular rate and rhythm
Respiratory:: Bilateral: Coarse
Lung Excursion:: Normal
Abdomen:: Nontender
Bowel Sounds:: Normal
Extremity Edema:: +1: Bilateral:
Other Findings::
avf
[2024-12-22] MEDS: PRANDIN 1 MG PO (17:25)
--- NOTE | 2024-12-22 17:54 | PTCARENOTE ---
OOB in chair all day- ambulated halls. Weaned off O2, remains 90-100% on RAIR. +NPC today but sometime he can bring up green phlegm. Speciman cup at bedside. IV antibx as ordered. Scheduled po Tylenol- pt has chronic back pain - does not
necessarily take all for back pain daily - will refuse dose if not needed. Appetite good, +BM. Oliguric, next HD Monday. Follows renal diet on own.
--- NOTE | 2024-12-22 23:16 | PTCARENOTE ---
Apneic episode while sleeping. Desats to 85% on RA. 2L NC while sleeping. Pulse ox 96%.
[2024-12-23] VITALS (12 sets, daily range): BP systolic 114–142; BP diastolic 65–80; BMI 21.8
[2024-12-23 04:12] LABS: % Basophils 0.3 % (0-2); % Immature Granulocytes 4.6 % (0-0.5); % Lymphocytes 32.2 % (20.5-51.1); % Monocytes 7.1 % (1.7-9.3); % Neutrophils 51.8 % (42.2-75.2); Absolute Eosinophils 0.1 10^3/uL (0-0.7); Absolute Immature Granulocytes 0.2 10^3/uL (0-0.05); Absolute Lymphocytes 1.1 10^3/uL (1.2-3.4); Absolute Monocytes 0.2 10^3/uL (0.1-0.6); Absolute Neutrophils 1.7 10^3/uL (1.4-6.5); Hematocrit 29.7 % (39.0-52.0); Hemoglobin 9.8 g/dL (13.0-18.0); Mean Corpuscular Hgb 30.2 pg (27.0-31.0); Mean Corpuscular Volume 91.7 fL (80.0-94.0); Mean Platelet Volume 10.7 fL (7.4-10.4); Nucleated Red Blood Cells % 0 % (-); Platelet Count 83 10^3/uL (130-400); Red Blood Cell Count 3.24 10^6/uL (4.70-6.10); Red Cell Dist. Width 15.2 % (11.5-14.5)
[2024-12-23 04:13] LABS: White Blood Cell Count 3.3 10^3/uL (4.8-10.8)
[2024-12-23 04:34] LABS: Blood Urea Nitrogen 54 mg/dl (9-20); Calcium 9.3 mg/dl (8.4-10.2); Carbon Dioxide 30 mmol/L (22-30); Chloride 102 mmol/L (98-107); Estimated Creatinine Clearance 18 ml/min; Glucose 152 mg/dl (70-99); Potassium 4.6 mmol/L (3.5-5.1); Sodium 138 mmol/L (135-145); eGFR 15.44
[2024-12-23] MEDS: PROGRAF 1 MG PO ×2 (08:47→21:04)
[2024-12-23] MEDS: VIBRAMYCIN 100 MG PO ×2 (08:47→21:04)
[2024-12-23] MEDS: MUCINEX 600 MG PO ×2 (08:47→21:05)
[2024-12-23] MEDS: TYLENOL 650 MG PO ×2 (08:47→21:13)
[2024-12-23] MEDS: TUMS CHEWABLE TABLET 200 MG PO (08:47)
[2024-12-23] MEDS: PROGRAF 5 MG PO ×2 (08:47→21:04)
[2024-12-23] MEDS: UNASYN IV ×2 (08:47→21:05)
[2024-12-23] MEDS: VITAMIN D3 (cholecalciferol) 25 MCG PO (08:47)
[2024-12-23] MEDS: LOPRESSOR 25 MG PO ×2 (08:48→21:05)
--- NOTE | 2024-12-23 09:30 | W.PN.CARDCBS ---
Today's Communication / Plan
-
Remains in sinus rhythm
Would consider anticoagulation if his platelets continue to improve and if this is acceptable to his transplant physician
Hospitalist noted that they are reaching out to transplant team.
Requested records from his EP.
Check echo to eval EF and LV size
Cont tele
Supportive care and abx as per primary service
Discussed with via telephone.
Impression / Plan
-
.
Cardiology/EP: Dr.Robert Montoya
Impression:
AF RVR, new diagnosis
[id number]: 3 (age, hypertension, diabetes). Not on anticoagulation at this time with thrombocytopenia
Placed on diltiazem drip for rate control with spontaneous return to sinus rhythm
Thrombocytopenia
Acute respiratory failure in the setting of community-acquired pneumonia, undergoing treatment
End-stage renal disease on hemodialysis
Hypertension
Diabetes mellitus type 2
Cirrhosis
Hepatitis C
Prior liver transplant
Plan:
Remains in sinus rhythm
Would consider anticoagulation if his platelets continue to improve and if this is acceptable to his transplant physician
Hospitalist noted that they are reaching out to transplant team.
Requested records from his EP.
Check echo to eval EF and LV size
Cont tele
Supportive care and abx as per primary service
Discussed with via telephone.
Progress Note - Boarding House Manager
Subjective
Date of Service: December 23, 2024
Pt seen and examined. No complaints. No chest pain or shortness of breath.
Objective
Labs:
12/23/24 03:37
12/23/24 03:37
Labs
Hgb 9.8 g/dL (13.0-18.0) L 12/23/24 03:37
Hct 29.7 % (39.0-52.0) L 12/23/24 03:37
Plt Count 83 10^3/uL (130-400) L D 12/23/24 03:37
PT 16.7 Sec (11.4-14.6) H 12/21/24 05:41
INR 1.33 12/21/24 05:41
Sodium 138 mmol/L (135-145) 12/23/24 03:37
Potassium 4.6 mmol/L (3.5-5.1) 12/23/24 03:37
BUN 54 mg/dl (9-20) H 12/23/24 03:37
Creatinine 4.0 mg/dL (0.7-1.3) H 12/23/24 03:37
Glucose 152 mg/dl (70-99) H 12/23/24 03:37
Vital Signs and I&O:
Vital Signs
Temp Pulse Resp BP Pulse Ox
97.7 F 59 19 114/72 96
12/23/24 07:55 12/23/24 04:00 12/23/24 04:00 12/23/24 04:00 12/23/24 04:34
Vital Signs
Temp Pulse Resp BP Pulse Ox
97.7 F 59 19 114/72 96
12/23/24 07:55 12/23/24 04:00 12/23/24 04:00 12/23/24 04:00 12/23/24 04:34
Intake & Output
12/21/24 12/22/24 12/23/24 12/24/24
06:59 06:59 06:59 06:59
Intake Total 360 / 360
Balance 360 / 360
Physical Exam
Physical Exam
General: No acute distress, AAOX3
Neck: Negative JVD
Heart: Regular, Negative S3 positive S1/S2, Negative S4, No murmur
Lungs: CTA b/l, negative wheezes/rales/rhonchi
Abd: Positive BS, NT/ND, neg rebound/rigidity/guarding
Ext: Negative cyanosis/clubbing/edema
Neuro: nonfocal
--- NOTE | 2024-12-23 11:24 | W.PN.HOSP.TC ---
Today's Communication/Plan
-
Wait for cardiology follow-up, ID eval
Rosanne from transplant team will get back to us if patient can be started on Eliquis versus Coumadin
Assessment / Plan
Assessment / Plan
69-year-old with history of liver transplant at [facility] 1 year ago presented with flulike symptoms.
Chest x-ray 12/21/2024-severe bilateral lower lobe airspace opacity. Severe bilateral lower lobe pneumonia combination with alveolar pulmonary edema and atelectasis. Small right and minimal left pleural effusion. Mild cardiomegaly.
EKG-sinus rhythm with supraventricular complexes with occasional PVCs. Nonspecific T wave changes
Awake alert
No distress
Cardiovascular system S1-S2 appreciated
Chest clear to auscultation
Abdomen soft nontender
No pedal edema
# Acute hypoxic respiratory failure secondary to community-acquired pneumonia in the setting of immunosuppression
COVID and influenza negative
Was on vancomycin, azithromycin and Zosyn
Currently on Unasyn and Doxy
Sputum cultures and blood cultures pending
Patient received pneumonia vaccine in July 2021. is not sure which type
Patient on room air
ID eval.
# A-fib with RVR
Occurred towards end of HD session on 12/21/2024 was placed on Cardizem drip
Currently in sinus rhythm
History of A-fib 1 year ago after liver transplant and none since
Has a PPM
Patient is on aspirin 325 daily at home
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
Check ECHO
Cards consulted
Per discussion with Rosanne who will fax me the report of the classroom monitor which came off on December 19, 2024. Per reports he had 3 beats of ventricular arrhythmia, 27 minutes of A-fib/flutter
She will fax the report
Patient's EP doctor is Dr. Montoya
Dr. Palomino is [facility]
# Status post liver transplantation November 2023 at [facility]
LFTs stable
Continue tacrolimus 6 mg twice a day
Dr. Martinez Liver transplant child care group leader
transplant team - [phone]
Spoke to Rosanne who is a nurse practitioner with transplant [phone]
Check tacrolimus [id number] to morning labs
LFTs to be added on
# Pancytopenia-improving
# Hepatitis B from the donor
Continue Entecavir 0.5 mg-he takes it on Tuesdays postdialysis. is aware to bring
# ESRD on hemodialysis
AV graft left upper extremity August 07, [address] Hall
He gets dialyzed in [facility] with Dr. Shaffer
Patient waitlisted for kidney transplant and was supposed to get a transplant this week
# Diabetes-continue Accu-Cheks and sliding scale coverage and Prandin 1 mg every evening with the biggest meal of the day.
Pt was on insulin in the past and not on that anymore
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 Now stopped
# Positive MRSA screen-ordered Bactroban ointment
# History of hepatitis C
# Ex Smoker
# DVT prophylaxis-SCDs given thrombocytopenia
# Full code
Spoke to Rosanne from transplant team. She will check with liver and kidney transplant team in let us know if the patient can be started on Eliquis.
Spoke to patient's in detail from patient's cell phone in the room
Total encounter time and discussion with , transplant team at [facility] and other consultants more than 50 minutes today.
Part of this note was created using voice recognition system. Occasional wrong word or��sound alike� substitutions may have inadvertently occurred due to the inherent limitations of voice recognition software. If noted kindly bring it to my
attention for correction.
Anticipated Discharge: Within 24 hours
Subjective/Interval History
-
Date of Service: December 23, 2024
Objective Data
-
Labs:
Laboratory Results
12/23/24
03:37
WBC 3.3 L
Hgb 9.8 L
Hct 29.7 L
Plt Count 83 L D
Sodium 138
Potassium 4.6
Chloride 102
Carbon Dioxide 30
BUN 54 H
Creatinine 4.0 H
Glucose 152 H
Calcium 9.3
Vital Signs:
Vital Signs
Temp Pulse Resp BP Pulse Ox
97.7 F 66 21 121/71 95
12/23/24 07:55 12/23/24 10:00 12/23/24 10:00 12/23/24 10:00 12/23/24 10:00
I&O
12/22/24 12/23/24 12/24/24
06:59 06:59 06:59
Intake Total 360 / 360
Balance 360 / 360
[2024-12-23 11:57] LABS: ALT (SGPT) < 10 U/L (0-50); AST (SGOT) 11 U/L (17-59); Albumin 3.5 g/dl (3.5-5.0); Alkaline Phosphatase 43 U/L (38-126); Direct Bilirubin 0.6 mg/dl (0.0-0.4); Total Bilirubin 0.7 mg/dl (0.2-1.3); Total Protein 6.4 g/dl (6.3-8.2)
[2024-12-23 11:59] LABS: Glucose - Point of Care 278 mg/dl (70-99)
[2024-12-23 12:44] LABS: Glycohemoglobin (HgbA1c) 6.5 % (4.0-5.6)
--- NOTE | 2024-12-23 12:58 | CM ---
CM reviewed chart and met with pt and bedside.
Reside in 2nd floor apt, no elevator, 6 plus 8 [place]
Independent with ADLs, use of SPC and commode
OP HD at [facility] in [place] T/Sat schedule ( No )
Spouse transports
Denies financial insecurities
PCP: Renaldo Langford
Pharmacy: [facility]
Per nursing, independent throughout room
Call to HD manager social work Norman [phone] per clinic request, update provided
DC dispo: Anticipate home, no needs
[facility] fax: [phone]
[2024-12-23] MEDS: BACTROBAN 2% OINTMENT 1 APPLIC NASAL ×2 (13:08→21:02)
[2024-12-23] MEDS: NOVOLOG FLEXPEN-LOW RESISTANCE 3 UNITS SC (13:09)
--- NOTE | 2024-12-23 14:13 | CON.ID ---
Consultation
-
Date/Time Consultation Requested: December 23, 2024 1006
Date/Time Consultation Performed: December 23, 2024 1415
Requesting Provider: Dr. Jah Lacey
Performing Provider: Dr. Sonya Barrientos
Reason for Consultation: Liver transplant patient with pneumonia
Chief Complaint / Past History
Chief Complaint
Cough with green sputum
History of Present Illness
69-year-old male with history of hepatitis C treated, cirrhosis status post liver transplant November 2023, end-stage renal disease on hemodialysis via AV graft who presented to the hospital on December 20 due to worsening cough. Patient reports initially
started with head congestion which then developed into cough productive of green sputum. Positive fever and chills at home. ER temperature 100.4 white count 1.2, 87% room air. Patient also noted to be new onset atrial fibrillation. Chest x-ray
showed severe bibasilar opacities. He received 2-day course of Zosyn plus vancomycin then transitioned to Unasyn plus doxycycline. Today reports he feels much improved. Cough has decreased. Cough no longer productive. He is saturating at room
air. He denies ill contacts. No recent travel. No history of frequent pneumonia. C/o left neck soreness
Past History
Additional Past Medical History:
Hx HCV treated
HCV Cirrhosis s/p Liver transplant 11/2023 at [facility]
Chronic hepatitis B of transplanted liver on entecavir
ESRD on HD via AVG, on transplant list
DM
HTN
Chronic pancytopenia
Allergy History:
No Known Allergies Allergy (Verified 12/20/24 23:24)
Medications Reviewed: Yes
Current Antibiotics:
s/p 2d Zosyn/Vanco
Doxycycline d2
Unasyn d2
Social History
Tobacco: Former Smoker
Alcohol: Former
Drug: None
Personal:
Living: With Family
Family History
Family History: Not Pertinent
Review of Systems
Review of Systems
Cardiovascular: Negative Chest Pain, Dyspnea or Edema
Gasteroenterology: Negative Nausea, Vomiting or Diarrhea
Endocrine: Negative Weakness
Neurological: Negative Dizziness
All systems: All other systems were reviewed and were negative
Vital Signs
Temp Pulse Resp BP Pulse Ox
97.7 F 60 21 131/78 98
12/23/24 07:55 12/23/24 12:00 12/23/24 10:00 12/23/24 12:00 12/23/24 12:00
Physical Exam
Physical Exam
Constitutional: No Acute Distress and Comfortable
Head: Other (No frontal or maxillary sinus tendereness. Left nape without induration/erythema/warmth)
Eyes: Negative Sclera Anicteric
Cardiovascular: Regular Rate and S1/S2
Pulmonary: Rales (mild crackles at bases)
Gastrointestinal: Soft, Non Tender, Non Distended and Normal Bowel Sounds
Extremities: Negative Edema
Skin: Negative Rash
Neurological: AO x 3; Negative Meningeal Signs
Psychological: Calm
Lab / Diagnostic Study Results
12/23/24 03:37
12/23/24 03:37
Abs Immat Gran (auto) 0.2 10^3/uL (0-0.05) H 12/23/24 03:37
Absolute Neuts (auto) 1.7 10^3/uL (1.4-6.5) 12/23/24 03:37
Absolute Lymphs (auto) 1.1 10^3/uL (1.2-3.4) L 12/23/24 03:37
Absolute Monos (auto) 0.2 10^3/uL (0.1-0.6) 12/23/24 03:37
Absolute Basos (auto) 0.0 10^3/uL (0-0.2) 12/23/24 03:37
Total Counted 100 12/21/24 05:41
Immature Gran % 4.6 % (0-0.5) H 12/23/24 03:37
Neutrophils % 51.8 % (42.2-75.2) 12/23/24 03:37
Lymphocytes % 32.2 % (20.5-51.1) 12/23/24 03:37
Monocytes % 7.1 % (1.7-9.3) 12/23/24 03:37
Eosinophils % 4.0 % (0-6) 12/23/24 03:37
Basophils % 0.3 % (0-2) 12/23/24 03:37
Abs Neuts (Manual) 1.2 10^3/uL (1.4-6.5) L 12/21/24 05:41
Segmented Neutrophils 70 % (42-75) 12/21/24 05:41
Band Neutrophils 2 % (0-3) 12/21/24 05:41
Lymphocytes (Manual) 20 % (20-51) 12/21/24 05:41
PT 16.7 Sec (11.4-14.6) H 12/21/24 05:41
INR 1.33 12/21/24 05:41
Lactic Acid Cancelled 12/21/24 15:22
Urine WBC 0-2 /HPF (0-5) 12/20/24 23:27
Ur Squamous Epith Cells 3-5 /LPF (Few) 12/20/24 23:27
Microbiology Results
Micro:
12/21/24 00:48 Blood Culture - Preliminary
Blood/Venous No Growth in 48 hours- Final report to follow
12/21/24 00:48 Blood Culture - Preliminary
Blood/Venous No Growth in 48 hours- Final report to follow
12/22/24 09:21 Legionella Urinary Antigen - Final
Urine Negative for Legionella pneumophila Serogroup 1 antigen.
A negative result does not rule out the possiblity of
Legionella infection due to other serogroups or species of
Legionella. Clinical correlation is recommended.
Streptococcus pneumoniae Antigen (M - Final
Negative for Streptococcus pneumoniae antigen.
A negative result does not exclude infection with
Streptococcus pneumoniae. Clinical correlation is
recommended.
12/21/24 08:09 MRSA Screen - Final
Nose Staph aureus MRSA
12/21/24 00:29 Influenza Types A & B (KURT) - Final
Nasal Swab Negative for Influenza A & B, NAAT
Negative results must be combined with clinical observations
and patient history.
Nucleic Acid Amplification test (NAAT)performed on the
[employer] platform.
12/20/24 23:27 Influenza Types A & B (KURT) - Final
Nasal Swab Test repeatedly invalid.
Nucleic Acid Amplification test (NAAT)performed on the
[employer] NOW platform.
12/21/24 CXR: Severe bilateral lower lobe airspace opacity. Diagnostic possibilities are (1) SEVERE BILATERAL LOWER LOBE PNEUMONIA or (2) a combination of alveolar pulmonary edema and atelectasis. Small right and minimal left pleural effusions.
Assessment / Plan
# Pneumonia
# Fever - resolved
# hx liver transplant on tacrolimus
# ESRD on HD
# MRSA colonized
- Pt is clinically responding to abx's.
- Continue Unasyn and doxycycline.
- At time of discharge, can transition to Augmentin 500mg po q24 and doxycycline 100mg po bid through 12/29/24.
# Left neck musculoskeletal strain
-Apply warm compress
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
Hx HCV treated
HCV Cirrhosis s/p Liver transplant 11/2023 at [facility]
Chronic hepatitis B of transplanted liver, on entecavir
ESRD on HD via AVG, on transplant list
DM
HTN
Chronic pancytopenia
--- NOTE | 2024-12-23 14:24 | W.PN.NEPH.PH ---
Today's Communication / Plan
-
HD tomorrow limited UF
Assessment/Plan
-
Impression:
PNA with hypoxic respiratory failure
ESRD
Chronic pancytopenia (chronic immunosuppresion)
History of liver transplant in November 2019
Hoa-tqetzuz-mlpceagqz diabetes
Hepatitis B
HTN
LUE AVF
Plan:
next HD on Monday
AFIB new onset, cards follows planning [facility], await txp center recs
will limit uf on next HD
Appropriate dietary and fluid restrictions ordered for ESRD
Antibiotics for pneumonia to be renally dosed
GENIE support for anemia
ENtacavir dose after HD tomorrow
d/c plan
-
-
Date of Service: December 23, 2024
CC / HPI / ROS
-
Chief Complaint:
ESRD TTS
History of Present Illness:
ESRD TTS
afib after HD 12/21
currently hemodyanmically stable
Review of Systems:
no cp or fevers
feels fine
on RA
Labs
-
Labs:
WBC 3.3 10^3/uL (4.8-10.8) L 12/23/24 03:37
RBC 3.24 10^6/uL (4.70-6.10) L 12/23/24 03:37
Hgb 9.8 g/dL (13.0-18.0) L 12/23/24 03:37
Hct 29.7 % (39.0-52.0) L 12/23/24 03:37
Plt Count 83 10^3/uL (130-400) L D 12/23/24 03:37
Sodium 138 mmol/L (135-145) 12/23/24 03:37
Potassium 4.6 mmol/L (3.5-5.1) 12/23/24 03:37
Chloride 102 mmol/L (98-107) 12/23/24 03:37
Carbon Dioxide 30 mmol/L (22-30) 12/23/24 03:37
BUN 54 mg/dl (9-20) H 12/23/24 03:37
Creatinine 4.0 mg/dL (0.7-1.3) H 12/23/24 03:37
eGFR 15.44 12/23/24 03:37
Glucose 152 mg/dl (70-99) H 12/23/24 03:37
Calcium 9.3 mg/dl (8.4-10.2) 12/23/24 03:37
Albumin 3.5 g/dl (3.5-5.0) 12/23/24 03:37
Physical Exam
-
Vital Signs:
Vital Signs
Temp Pulse Resp BP Pulse Ox
97.7 F 60 21 131/78 98
12/23/24 07:55 12/23/24 12:00 12/23/24 10:00 12/23/24 12:00 12/23/24 12:00
Cardiovascular:: Regular rate and rhythm
Respiratory:: Bilateral: Coarse
Lung Excursion:: Normal
Abdomen:: Nontender
Bowel Sounds:: Normal
Extremity Edema:: +1: Bilateral:
Ornelas Catheter: No
Other Findings::
avf
--- NOTE | 2024-12-23 14:59 | W.PN.UPDATE ---
Update Note
Progress Note Update
spoke to Rosanne at [facility]. OK to start Eliquis .
Spoke to pt and at bed side
D/W Cards
Will start Eliquis
--- NOTE | 2024-12-23 16:38 | W.PN.UPDATE ---
Update Note
Progress Note Update
reviewed 14 holter monitor from [place] 11/29/2024: NSR average 68bpm, range 51-173. AF burden 0%, 1% PACs, 1% PVCs, episode SVT 27 minutes-doesn't specify arrhythmia.
his case was reviewed earlier with from [place]- ok to start Eliquis. Med started at 5 mg bid.
--- NOTE | 2024-12-23 16:53 | W.PN.UPDATE ---
Addendum entered and electronically signed by Jah Lacey MD 12/23/24 16:58:
Holter monitor AF burden 0%
Original Note:
Update Note
Progress Note Update
Outside records from Dr. Martinez reviewed
Patient had liver transplant for hepatitis C on 11/20/2023
Continues on tacrolimus 6 mg twice a day
Patient is also listed for renal transplant
Remains on Entecavir for HBsAg positive status. Viral load in October 2024 undetectable
PCP prophylaxis completed
[2024-12-23 17:11] LABS: Glucose - Point of Care 197 mg/dl (70-99)
[2024-12-23] MEDS: PRANDIN 1 MG PO (17:18)
[2024-12-23] MEDS: ELIQUIS 5 MG PO (17:18)
[2024-12-23] MEDS: NOVOLOG FLEXPEN-LOW RESISTANCE 1 UNITS SC (17:18)
--- NOTE | 2024-12-23 22:17 | PTCARENOTE ---
Patient aao x3 since start of shift, affect pleasant, able to make needs known. Patient c/o pain 12/17 to neck, states pain is chronic and at home is relieved by tylenol and warm compress. PRN Tylenol administered and warm compress applied. Patient
verbalizes relief short time later. NSR on the monitor, PVCs noted, Paced at times. Patient scheduled for HD tomorrow at 0700. Call mc within reach, will continue to monitor patient closely.
[2024-12-23 22:21] LABS: Glucose - Point of Care 135 mg/dl (70-99)
[2024-12-24] VITALS (25 sets, daily range): BP systolic 111–141; BP diastolic 59–80; PULSE 58; BMI 21.7
--- NOTE | 2024-12-24 01:21 | PTCARENOTE ---
Patient nauseous, vomiting this am. Patient said it happens sometimes with his back pain, and usually goes away on its own. He is not yet due for tylenol but provided with radha glendy. Patient declines medications at this time. SHONDA Stanley
notified. Patient oob to chair to relieve pain. Call mc within reach.
[2024-12-24 07:42] LABS: Glucose - Point of Care 203 mg/dl (70-99)
--- NOTE | 2024-12-24 08:25 | W.PN.CARDCBS ---
Today's Communication / Plan
-
Remains sinus
Cont Eliquis
Outpt follow up
Impression / Plan
-
.
Cardiology/EP: Dr.Robert Montoya
Impression:
AF RVR, new diagnosis
[id number]: 3 (age, hypertension, diabetes). Not on anticoagulation at this time with thrombocytopenia
Placed on diltiazem drip for rate control with spontaneous return to sinus rhythm
Thrombocytopenia
Acute respiratory failure in the setting of community-acquired pneumonia, undergoing treatment
End-stage renal disease on hemodialysis
Hypertension
Diabetes mellitus type 2
Cirrhosis
Hepatitis C
Prior liver transplant
Plan:
Remains in sinus rhythm
After discussion with ISHMAEL, pt ok for Eliquis and this was started December 23.
Monitor H/H and platelet counts as outpt.
Recent monitor with no AFib burden
Echo December 23 2024: EF Normal left ventricular size, wall thickness and systolic function. No regional wall motion abnormalities are seen. LV ejection fraction is 50-55%, mild MR, mild AR, mild to mod TR, PASP 39 mmHg.
Cont supportive care and abx as per primary service
Discussed with via telephone last 24 hrs
Outpt follow up with outside restaurant front manager
Please recall if needed.
Progress Note - Fur Weigher
Subjective
Date of Service: December 24, 2024
Pt seen and examined. No complaints. No chest pain or shortness of breath.
Objective
Labs:
Labs
Hgb 9.8 g/dL (13.0-18.0) L 12/23/24 03:37
Hct 29.7 % (39.0-52.0) L 12/23/24 03:37
Plt Count 83 10^3/uL (130-400) L D 12/23/24 03:37
PT 16.7 Sec (11.4-14.6) H 12/21/24 05:41
INR 1.33 12/21/24 05:41
Sodium 138 mmol/L (135-145) 12/23/24 03:37
Potassium 4.6 mmol/L (3.5-5.1) 12/23/24 03:37
BUN 54 mg/dl (9-20) H 12/23/24 03:37
Creatinine 4.0 mg/dL (0.7-1.3) H 12/23/24 03:37
Glucose 152 mg/dl (70-99) H 12/23/24 03:37
Vital Signs and I&O:
Vital Signs
Temp Pulse Resp BP Pulse Ox
97.6 F 60 11 133/68 98
12/24/24 03:00 12/24/24 06:00 12/24/24 06:00 12/24/24 06:00 12/24/24 06:00
Vital Signs
Temp Pulse Resp BP Pulse Ox
97.6 F 60 11 133/68 98
12/24/24 03:00 12/24/24 06:00 12/24/24 06:00 12/24/24 06:00 12/24/24 06:00
Intake & Output
12/22/24 12/23/24 12/24/24 12/25/24
06:59 06:59 06:59 06:59
Intake Total 760 / 760
Balance 760 / 760
Physical Exam
Physical Exam
General: No acute distress, AAOX3
Neck: Negative JVD
Heart: Regular, Negative S3 positive S1/S2, Negative S4, No murmur
Lungs: CTA b/l, negative wheezes/rales/rhonchi
Abd: Positive BS, NT/ND, neg rebound/rigidity/guarding
Ext: Negative cyanosis/clubbing/edema
Neuro: nonfocal
[2024-12-24 08:33] LABS: Hematocrit 27.1 % (39.0-52.0); Hemoglobin 9.2 g/dL (13.0-18.0); Mean Corp Hgb Conc. 33.9 g/dL (33.0-37.0); Mean Corpuscular Hgb 30.5 pg (27.0-31.0); Mean Corpuscular Volume 89.7 fL (80.0-94.0); Platelet Count 84 10^3/uL (130-400); Red Blood Cell Count 3.02 10^6/uL (4.70-6.10); Red Cell Dist. Width 14.8 % (11.5-14.5); White Blood Cell Count 2.6 10^3/uL (4.8-10.8)
[2024-12-24 09:14] LABS: ALT (SGPT) < 10 U/L (0-50); AST (SGOT) 12 U/L (17-59); Albumin 3.3 g/dl (3.5-5.0); Alkaline Phosphatase 43 U/L (38-126); Blood Urea Nitrogen 69 mg/dl (9-20); Calcium 8.9 mg/dl (8.4-10.2); Carbon Dioxide 22 mmol/L (22-30); Chloride 106 mmol/L (98-107); Estimated Creatinine Clearance 15 ml/min; Glucose 223 mg/dl (70-99); Potassium 4.1 mmol/L (3.5-5.1); Sodium 136 mmol/L (135-145); Total Bilirubin 0.9 mg/dl (0.2-1.3); Total Protein 6.1 g/dl (6.3-8.2)
[2024-12-24] MEDS: NOVOLOG FLEXPEN-LOW RESISTANCE SC ×2 (09:20→12:38)
--- NOTE | 2024-12-24 09:35 | W.PN.ID1 ---
Date of Service
Date of Service: December 24, 2024
Today's Communication
At time of discharge, can transition to Augmentin 500mg po q24 and doxycycline 100mg po bid through 12/29/24.
Assessment / Plan
# Pneumonia
# Fever - resolved
# hx HCV liver transplant on tacrolimus
# ESRD on HD
# MRSA colonized
# Chronic hepatitis B (from donor liver), on entecavir
- Continue Unasyn and doxycycline.
- At time of discharge, can transition to Augmentin 500mg po q24 and doxycycline 100mg po bid through 12/29/24.
# Left neck musculoskeletal strain
- Continue warm compress
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
Hx HCV treated
HCV Cirrhosis s/p Liver transplant 11/2023 at [facility]
Chronic hepatitis B of transplanted liver, on entecavir
ESRD on HD via AVG, on transplant list
DM
HTN
Chronic pancytopenia
Chief Complaint
-: Pneumonia
Subjective / Review of Systems
Cough continues to improve.
Vital Signs / Physical Exam
Vital Signs
Vital Signs
Temp Pulse Resp BP Pulse Ox
97.6 F 60 11 133/68 98
12/24/24 03:00 12/24/24 06:00 12/24/24 06:00 12/24/24 06:00 12/24/24 06:00
Physical Exam
Constitutional: No Acute Distress
Cardiovascular: Regular Rate and S1/S2
Pulmonary: Rales (minimal crackles bases)
Gastrointestinal: Soft, Non Tender, Non Distended and Normal Bowel Sounds
Genito-Urinary: Negative CVA Tenderness
Extremities: Negative Edema
Neurological: AO x 3
Objective Data
Lab Data
Lab Results
12/24/24 07:46
12/24/24 07:45
PT 16.7 Sec (11.4-14.6) H 12/21/24 05:41
INR 1.33 12/21/24 05:41
Estimated Creat Clear 15 ml/min 12/24/24 07:45
Lactic Acid Cancelled 12/21/24 15:22
Total Bilirubin 0.9 mg/dl (0.2-1.3) 12/24/24 07:45
AST 12 U/L (17-59) L 12/24/24 07:45
ALT < 10 U/L (0-50) 12/24/24 07:45
Alkaline Phosphatase 43 U/L (38-126) 12/24/24 07:45
Most recent labs reviewed.
Micro Results:
12/21/24 00:48 Blood Culture - Preliminary
Blood/Venous No Growth in 72 hours- Final report to follow
12/21/24 00:48 Blood Culture - Preliminary
Blood/Venous No Growth in 72 hours- Final report to follow
12/24/24 00:35 Respiratory Culture - Pending
Sputum Gram Stain - Pending
12/22/24 09:21 Legionella Urinary Antigen - Final
Urine Negative for Legionella pneumophila Serogroup 1 antigen.
A negative result does not rule out the possiblity of
Legionella infection due to other serogroups or species of
Legionella. Clinical correlation is recommended.
Streptococcus pneumoniae Antigen (M - Final
Negative for Streptococcus pneumoniae antigen.
A negative result does not exclude infection with
Streptococcus pneumoniae. Clinical correlation is
recommended.
12/21/24 08:09 MRSA Screen - Final
Nose Staph aureus MRSA
12/21/24 00:29 Influenza Types A & B (KURT) - Final
Nasal Swab Negative for Influenza A & B, NAAT
Negative results must be combined with clinical observations
and patient history.
Nucleic Acid Amplification test (NAAT)performed on the
[employer] platform.
12/20/24 23:27 Influenza Types A & B (KURT) - Final
Nasal Swab Test repeatedly invalid.
Nucleic Acid Amplification test (NAAT)performed on the
[employer] platform.
12/21/24 CXR: Severe bilateral lower lobe airspace opacity. Diagnostic possibilities are (1) SEVERE BILATERAL LOWER LOBE PNEUMONIA or (2) a combination of alveolar pulmonary edema and atelectasis. Small right and minimal left pleural effusions.
[2024-12-24] MEDS: RETACRIT 4000 UNITS IV (09:40)
[2024-12-24] MEDS: FLEXBUMIN 25% FOR HEMODIALYSIS 12.5 GRAMS IV (09:40)
--- NOTE | 2024-12-24 10:47 | W.PN.HOSP.TC ---
Addendum entered and electronically signed by Jah Lacey MD 12/24/24 11:34:
Spoke to and updated regarding changes on the tacrolimus, med changes. She will give Entecavir when the patient reaches home today.
Gave a printout of echo and chest x-ray per her request.
Also will do prescription for CBC with results to go to PCP
Total discharge coordination time more than 45 minutes
Original Note:
Today's Communication/Plan
-
Probable discharge today
Assessment / Plan
Assessment / Plan
69-year-old with history of liver transplant at [facility] 1 year ago presented with flulike symptoms.
Chest x-ray 12/21/2024-severe bilateral lower lobe airspace opacity. Severe bilateral lower lobe pneumonia combination with alveolar pulmonary edema and atelectasis. Small right and minimal left pleural effusion. Mild cardiomegaly.
EKG-sinus rhythm with supraventricular complexes with occasional PVCs. Nonspecific T wave changes
Echo 12/23/2024 with normal LV size, wall thickness and systolic function. EF 50 to 55%. Stage II diastolic dysfunction suggestive of abnormal relaxation and increased filling pressure. Mitral valve opens normally. Thickened mitral valve
leaflets. Mild MR. Thickened aortic valve mild AI. Tricuspid valve opens normally. Mild to moderate TR. Pulmonary artery pressure 39 mmHg. Moderately dilated RA. Normal RV size and function.
Awake alert
No distress
Cardiovascular system S1-S2 appreciated
Chest clear to auscultation
Abdomen soft nontender
No pedal edema
Patient denies any hemoptysis
# Acute hypoxic respiratory failure secondary to community-acquired pneumonia in the setting of immunosuppression
COVID and influenza negative
Was on vancomycin, azithromycin and Zosyn
Currently on Unasyn and Doxy
Sputum culture pending and blood cultures neg
Patient received pneumonia vaccine in July 2021. is not sure which type
Patient on room air
ID eval.
# A-fib with RVR
Occurred towards end of HD session on 12/21/2024 was placed on Cardizem drip
Currently in sinus rhythm
History of A-fib 1 year ago after liver transplant and none since
Has a PPM
Patient is on aspirin 325 daily at home changed to Eliquis on 12/23/2024
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
Cards consulted
Per discussion with Rosanne who will fax me the report of the cell repairer which came off on December 19, 2024.
Report reviewed. No A-fib/a flutter
Patient's EP doctor is Dr. Montoya
Dr. Palomino is [place] [facility]
# Status post liver transplantation November 2023 at [facility]
LFTs stable
Patient is on tacrolimus 6 mg twice a day
Level at [address] Martinez Liver transplant mill hand plate mill
transplant team - [phone]
Spoke to Rosanne who is a nurse practitioner with transplant [phone] on 12/24/2024.
Also spoke to lab. Tacrolimus level was added onto lab from 3.37 in the morning on 12/23/2024.
Possibly levels are high 39 secondary to antibiotics
Patient does not have any symptoms of nausea or vomiting or any additional symptoms today.
Rosanne has been in touch with Dr. Martinez
Rosanne advised to reduce tacrolimus to 5 mg twice daily.
She also confirmed that they will send a prescription electronically for patient to get lab work done on Monday to repeat the levels.
# Pancytopenia-improving
# Hepatitis B from the donor
Continue Entecavir 0.5 mg-he takes it on Tuesdays postdialysis. is aware to bring
# ESRD on hemodialysis
AV graft left upper extremity August 07, [address] Hall
He gets dialyzed in [place] dialysis in [facility] with Dr. Shaffer
Patient waitlisted for kidney transplant and was supposed to get a transplant this week
# Diabetes-continue Accu-Cheks and sliding scale coverage and Prandin 1 mg every evening with the biggest meal of the day.
Pt was on insulin in the past and not on that anymore
Hemoglobin A1c 6.5
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
# Positive MRSA screen-ordered Bactroban ointment per patient request
# History of hepatitis C
# Ex Smoker
# DVT prophylaxis-SCDs given thrombocytopenia
# Full code
Spoke to Rosanne who is an CREDENTIALING ASSISTANT from liver transplant team. Marvel is okay with discharging the patient today with this tacrolimus level. Advised to decrease the dose to 5 mg twice a day and they will have patient get lab work on Monday. They will
take care of the prescription.
Patient is aware about this. He denies any additional symptoms at this point.
Called patient's and left a message for call back
Discussed with nursing
Part of this note was created using voice recognition system. Occasional wrong word or��sound alike� substitutions may have inadvertently occurred due to the inherent limitations of voice recognition software. If noted kindly bring it to my
attention for correction.
Anticipated Discharge: Today
Subjective/Interval History
-
Date of Service: December 24, 2024
Objective Data
-
Labs:
Laboratory Results
12/24/24 12/24/24
07:45 07:46
WBC 2.6 L
Hgb 9.2 L
Hct 27.1 L
Plt Count 84 L
Sodium 136
Potassium 4.1
Chloride 106
Carbon Dioxide 22
BUN 69 H
Creatinine 4.8 H*
Glucose 223 H
Calcium 8.9
Total Bilirubin 0.9
AST 12 L
ALT < 10
Alkaline Phosphatase 43
Vital Signs:
Vital Signs
Temp Pulse Resp BP Pulse Ox
97.6 F 61 23 127/75 98
12/24/24 07:55 12/24/24 10:30 12/24/24 10:30 12/24/24 10:30 12/24/24 10:39
I&O
12/23/24 12/24/24 12/25/24
06:59 06:59 06:59
Intake Total 760 / 760 120 / 120
Balance 760 / 760 120 / 120
[2024-12-24] MEDS: UNASYN IV (10:58)
--- NOTE | 2024-12-24 11:23 | W.PN.NEPH.HD ---
Assessment
-
pt seen during HD
vitals stable
minimal UF only
AVF functions fine
plan d/c today
Progress Note - Hemodialysis
-
Date of Service: December 24, 2024
Duration: 30 minutes and 3 hours
Potassium Bath: 3
Calcium Bath: 2.5
Opti-Dialyzer: 160
Ultrafiltration: Other (0.5-1kg)
Blood Flow: 400
Dialysate Flow: 600
Heparin: no
EPO: 4000
--- NOTE | 2024-12-24 11:35 | W.DS.TRANS ---
Addendum entered and electronically signed by Jah Lacey MD 12/24/24 14:47:
Dictation- [id number]
Original Note:
DC Summary - Scrap Worker
-
Discharge Instructions:
Discharge Diagnosis/Procedures Pneumonia
Atrial fibrillation
Pancytopenia
Elevated Ta
Status post liver transplant November 2023
Hepatitis B
End-stage renal disease on dialysis
Diabetes
Positive MRSA screen
Diet Diabetic, Carb Controlled,Restrict fluids to 64
oz
Activity As tolerated
Driving Restrictions As prior to admission
Blood Work Tacrolimus level per your transplant physician.
CBC with differential.
Others Tests Chest x-ray 4 to 6 weeks
Other Services VN
Instructions:
Stand-Alone Forms:
Changes to Home Medications: Yes
Discharge Medications:
DC Medications w/original date entered in [employer]
calcium carbonate (Tums) 200 mg PO DAILY Supplement 08/07/24
cholecalciferol (vitamin D3) 25 mcg (1,000 unit) capsule (Vitamin D3) 25 mcg PO DAILY Supplement 08/07/24
furosemide 80 mg tablet 80 mg PO .SUNMONWEDTHFRI Fluid Retention/Swelling 08/07/24
repaglinide 1 mg tablet 1 mg PO QPM Diabetes 08/07/24
tacrolimus 5 mg capsule, immediate-release 5 mg PO Q12H Transplant 08/07/24
amoxicillin 500 mg-potassium clavulanate 125 mg tablet (Augmentin) 1 tab PO BID Infection #6 tabs 12/24/24
apixaban 5 mg tablet (Eliquis) 5 mg PO BID Blood clot prevention/tx #60 tabs 12/24/24
doxycycline hyclate 100 mg capsule 100 mg PO Q12 Infection #11 caps 12/24/24
entecavir 0.5 mg tablet (Baraclude) 0.5 mg PO TU Hepatitis B #0 tabs 12/24/24
guaifenesin 600 mg tablet, extended release 12 hr 600 mg PO Q12 Cough #0 tabs 12/24/24
metoprolol tartrate 25 mg tablet 25 mg PO BID Blood pressure #60 tabs 12/24/24
mupirocin 2 % topical ointment 1 applic intranasal BID Skin issues #15 grams 12/24/24
Home Medication Changes
Tacrolimus dose changed to 5 mg twice a day
New medicines-amoxicillin, Eliquis, doxycycline, guaifenesin, metoprolol, mupirocin
Pending Results: Yes (sputum culture)
[2024-12-24] MEDS: LOPRESSOR 25 MG PO (11:41)
[2024-12-24] MEDS: VIBRAMYCIN 100 MG PO (11:42)
[2024-12-24] MEDS: BACTROBAN 2% OINTMENT 1 APPLIC NASAL (11:42)
[2024-12-24] MEDS: TUMS CHEWABLE TABLET 200 MG PO (11:42)
[2024-12-24] MEDS: VITAMIN D3 (cholecalciferol) 25 MCG PO (11:42)
[2024-12-24] MEDS: PROGRAF 5 MG PO (11:42)
[2024-12-24] MEDS: MUCINEX 600 MG PO (11:42)
[2024-12-24] MEDS: ELIQUIS 5 MG PO (11:50)
[2024-12-24] MEDS: PROGRAF PO (11:51)
[2024-12-24 12:37] LABS: Glucose - Point of Care 118 mg/dl (70-99)
--- NOTE | 2024-12-24 12:40 | PTCARENOTE ---
Dialysis completed, patient had episode of nausea this morning not requiring any medication. Patient has a productive cough, has a streak of blood earlier, now is arceo/brownish. Discussed with hospitalist. Patient in good spirits, compliant with plan
of care.
--- NOTE | 2024-12-24 13:03 | CM ---
Patient has been medically cleared for discharge to home with [facility] RN services. will transport home. IMM signed.
--- NOTE | 2024-12-24 14:51 | W.PN.UPDATE ---
Update Note
Progress Note Update
Augmentin prescription was transmitted to pharmacy is twice a day but infectious disease recommended once a day.
I called patient's and made her aware about the change and also sent a new prescription to the pharmacy.
All the prescription was canceled
== END 2024-12-24 14:09 | disposition home health service (06) | DRG 193 ==
LOC: IMU 02:13
PROVIDERS: Internal Medicine; Student in an Organized Health Care Education/Training Program; ADMITTING PHYSICIAN Internal Medicine; ATTENDING PHYSICIAN Hospitalist; CONSULT PHYSICIAN Internal Medicine Cardiovascular Disease; CONSULT PHYSICIAN Specialist; EMERGENCY PHYSICIAN Emergency Medicine; FAMILY PHYSICIAN Family Medicine; OTHER PHYSICIAN Internal Medicine Infectious Disease
PROC: 5A1D70Z Performance of Urinary Filtration, Intermittent, Less than 6 Hours Per Day (ICD-10-PCS; 2024-12-21)
DX: J18.9 Pneumonia, unspecified organism (principal); J96.01 Acute respiratory failure with hypoxia; N18.6 End stage renal disease; B18.1 Chronic viral hepatitis B without delta-agent; D61.818 Other pancytopenia; D84.821 Immunodeficiency due to drugs; I12.0 Hypertensive chronic kidney disease with stage 5 chronic kidney disease or end stage renal disease; Z94.4 Liver transplant status; I48.91 Unspecified atrial fibrillation; Z99.2 Dependence on renal dialysis; E11.22 Type 2 diabetes mellitus with diabetic chronic kidney disease; Z22.322 Carrier or suspected carrier of Methicillin resistant Staphylococcus aureus; Z11.52 Encounter for screening for COVID-19; B00.1 Herpesviral vesicular dermatitis; Z87.891 Personal history of nicotine dependence; Z79.621 Long term (current) use of calcineurin inhibitor; E87.5 Hyperkalemia; K21.9 Gastro-esophageal reflux disease without esophagitis; Z79.82 Long term (current) use of aspirin
CPT/HCPCS: 71046; 80048; 80053; 80197; 80202; 81003; 81015; 82248; 82962; 83036; 83605; 83735; 85025; 85027; 85610; 87040; 87070; 87147; 87205; 87449; 87502; 87811; 87899; 93005; 93306; 96365; 96375; 97162; 99284; P9047; Q5106

== ENCOUNTER → 2025-01-13 13:00 | Outpatient (REF) | payer MEDICARE, OTHER, SELFPAY | LOC: RAD 13:00 | PROVIDERS: ATTENDING PHYSICIAN Internal Medicine Rheumatology; FAMILY PHYSICIAN Family Medicine | DX: E03.9 Hypothyroidism, unspecified (principal); E55.9 Vitamin D deficiency, unspecified; M54.50 Low back pain, unspecified; M54.6 Pain in thoracic spine; M81.0 Age-related osteoporosis without current pathological fracture; Z51.81 Encounter for therapeutic drug level monitoring | CPT/HCPCS: 72072; 72100 ==